=== PATIENT | female | born 1950 | race Caucasian/White ===

== ENCOUNTER → 2017-07-24 | Outpatient (CLI) | payer OTHER, SELFPAY ==
[~2017-07-24] MED LIST: ACETAMINOPHEN-1 EAC1 PO; AMOXICILLIN 50500 MG PO; CHOLESTEROL MED PO; CIPRO500 MG PO; COZAAR100 MG PO; FISH OIL 1,0001 EAC5 PO; FLUSH IV; LISINOPRIL10 MG PO; MULTI VITAMIN1 EACH PO; NAPROSYN500 MG PO; NOHOMEMEDICATIONS; OXYCONTIN10 M1 PO; PROTONIX40 M1 PO; SANTYL OINTMENT30 G1 TP; SENNA PO; SIMVASTATIN80 MG PO; VANCOMYCIN500 MG/VIA IV; vitamin b12 PO
[2017-07-24 08:04] LABS: CREATININE 1.2 mg/dL (0.6-1.3)
== END ==
LOC: M.LAB 07:00 → M.CT 08:00
PROVIDERS: Family Medicine
DX: Z01.818 Encounter for other preprocedural examination (principal); N28.1 Cyst of kidney, acquired; R91.1 Solitary pulmonary nodule; R93.8 Abnormal findings on diagnostic imaging of other specified body structures

== ENCOUNTER 2019-07-08 17:11 | Inpatient (IN) | payer OTHER, MEDICAID ==
[~2019-07-08] VITALS: Ht 154.9 cm; Wt 66.3 kg
[2019-07-08] MEDS ORDERED: PRAVACHOL40 MG PO (17:22)
[2019-07-08] MEDS ORDERED: ASA81BEC PO (17:23)
[2019-07-08] MEDS ORDERED: PLAVIX 75 MG TA75 MG PO (17:23)
[2019-07-08] MEDS ORDERED: VENTOLIN HFA 1818 GM INH (17:24)
[2019-07-08] MEDS ORDERED: ALBUTEROL NEB (17:24)
[2019-07-08 17:45] LABS: HEMATOCRIT 37.3 % (37.0-47.0); HEMOGLOBIN 12.4 gm/dL (12.0-15.0); MCH 30.1 pg (26.0-34.0); MCHC 33.4 g/dL (28.0-37.0); MCV 90.3 fL (80.0-100.0); MPV 7.9 fl. (7.2-11.1); NUCLEATED RBCS 0 /100WBC; PLATELET COUNT* 242 thou/uL (150-400); RBC 4.13 mil/uL (4.20-5.00); RDW-CV 18.5 % (10.5-14.5); WBC 12.4 thou/uL (4.0-11.0)
[2019-07-08 17:56] LABS: CALCIUM 9.7 mg/dL (8.5-10.1); CREATININE 1.3 mg/dL (0.6-1.3); POTASSIUM 4.7 mmol/L (3.5-5.1); PROTIME 10.5 Seconds (9.20-11.50)
[2019-07-08 18:03] LABS: ABSOLUTE LYMPHOCYTES 1.2 thou/uL (0.8-5.3); ABSOLUTE MONOCYTES 0.5 thou/uL (0.0-1.2); ABSOLUTE NEUTROPHILS 10.7 thou/uL (1.6-8.1); PLATELET ESTIMATE ADEQUATE
[2019-07-08 18:06] LABS: TOTAL BILIRUBIN 0.5 mg/dL (<0.1-1.0); TOTAL PROTEIN 8.4 g/dL (6.4-8.2)
[2019-07-08 18:56] LABS: INFLUENZA A ANTIGEN Negative (Negative); INFLUENZA B ANTIGEN Negative (Negative)
[2019-07-08 19:33] VITALS: BP 160/91
[2019-07-08 20:00] VITALS: BP 148/91
[2019-07-08 23:44] VITALS: BP 156/70
--- NOTE | 2019-07-09 02:12 | NUR ---
PT ALERT ORIENTED. ADMIT TO 219 AT 1940. UP TO BSC WITH ASSIST OF ONE. FREQUENT COUGHING. O2 AT 2 LITERS NC. O2 SATS IN THE MID TO UPPER 90S. BREATH SOUNDS INITIALY DIMINISHED NOW WITH WHEEZES THROUGH OUT. RT NOTIFIED FOR NEXT TX. COUGHING BECAME CONTINUOUS. DR DWYER NOTIFIED GUAIFENESIN WITH CODINE AND ONE TIME ORDER OF XANAX ORDERED AND GIVEN. IT SHOULD BE NOTED THAT PT STATES SHE DRINKS A VODKA AND TONIC DAILY. PT STATED HE LAST DRINK WAS JUST BEFORE SHE CAME INTO THE ED. TELEMETRY SHOWS SR. HR 120S WITH CONTINUOUS COUGHING BETTER NOW. WCTM
[2019-07-09 05:00] VITALS: BP 156/97
--- NOTE | 2019-07-09 05:51 | NUR ---
PT RESTING BETTER WITH LESS COUGHING. 2 DOSES OF COUGH MEDICINE GIVEN. O2 SATS DURING SLEEP UPPER 90S.
[2019-07-09 08:00] VITALS: BP 153/87
[2019-07-09 14:00] VITALS: BP 157/92
--- NOTE | 2019-07-09 18:00 | NUR ---
ASSUMED PT CARE AT 0700, PT A&O X4, REMAINS ON 2LPM O2 VIA NC, ALUMINUM BOAT INSPECTOR TRACING SINUS RHYTHM/SINUS TACH WITH FIRST DEGREE AV BLOCK, FULL ASSESSMENT CHARTED. PT HAVING EPISODES OF HYPERTENSION, BP 140/112 MANUALLY, PHYSICIAN NOTIFIED, NO NEW ORDERS GIVEN, BP CONT TO BE MONITORED CAREFULLY AND MANUALLY, DIASTOLIC DID LOWER TO 99. HOURLY ROUNDING COMPLETED.
[2019-07-10] VITALS (18 sets, daily range): BP systolic 69–168; BP diastolic 41–111
[2019-07-10 04:54] LABS: HEMATOCRIT 36.2 % (37.0-47.0); HEMOGLOBIN 11.9 gm/dL (12.0-15.0); MCH 30.3 pg (26.0-34.0); MCHC 32.8 g/dL (28.0-37.0); MCV 92.4 fL (80.0-100.0); MPV 7.5 fl. (7.2-11.1); RBC 3.92 mil/uL (4.20-5.00); WBC 16.4 thou/uL (4.0-11.0)
[2019-07-10 05:15] LABS: CALCIUM 8.4 mg/dL (8.5-10.1); CREATININE 1.2 mg/dL (0.6-1.3); MAGNESIUM 2.1 mg/dL (1.8-2.4); POTASSIUM 4.5 mmol/L (3.5-5.1)
[2019-07-10 05:48] LABS: URINE BILIRUBIN NEGATIVE (Negative); URINE BLOOD 1+ (Negative); URINE CLARITY CLEAR; URINE COLOR YELLOW; URINE GLUCOSE-RANDOM NEGATIVE (Negative); URINE KETONES NEGATIVE (Negative); URINE LEUKOCYTES-REFLEX NEGATIVE (Negative); URINE NITRITE-REFLEX NEGATIVE (Negative); URINE PROTEIN 2+ (Negative); URINE SPECIFIC GRAVITY 1.025 (1.005-1.030); URINE UROBILINOGEN 0.2 E.U./dl (0.2-1.0)
[2019-07-10 05:55] LABS: AMP/METHAMP Negative (Negative); BARBITURATES Negative (Negative); BENZODIAZEPINES Negative (Negative); COCAINE Negative (Negative); METHADONE Negative (Negative); OPIATES POSITIVE (Negative); PCP Negative (Negative); THC Negative (Negative)
[2019-07-10 06:27] LABS: BACTERIA-REFLEX 1-9 Few /HPF (None Seen); SQUAMOUS 0-3 Few /LPF (0-3); URINE RBC 0-2 Rare /HPF (0-2); URINE WBC-REFLEX 0-5 Rare /HPF (0-5)
[2019-07-10 06:28] LABS: CASTS None Seen /LPF (None Seen); CRYSTALS None Seen /LPF (None Seen)
[2019-07-10 07:02] LABS: PROTIME 10.3 Seconds (9.20-11.50)
[2019-07-10 07:06] LABS: CALCIUM 8.3 mg/dL (8.5-10.1); PHOSPHORUS* 3.6 mg/dL (2.5-4.9)
--- NOTE | 2019-07-10 08:04 | NUR ---
PT AWAKE MOST OF SHIFT. ASSESSMENT DOCUMENTED. MEDS GIVEN PER E-MAR. PORT PATENT. O2 WORN ALL SHIFT. PT STARTED SEEING BUGS IN ROOM, PRN ATIVAN GIVEN PER E-MAR. NOTIFIED, ALCOHOL WITHDRAWL STARTED. PT AGGITATED AT TIMES THIS SHIFT. CIWA DOCUMENTED. FALL PRECAUTIONS IN PLACE. WILL CONTINUE WITH PLAN OF CARE.
[2019-07-10 09:20] LABS: PCO2 94.5 mmHg (35.0-45.0); pH 7.048 (7.340-7.450)
[2019-07-10 09:21] LABS: PO2 195.7 mmHg (75.0-100.0)
--- NOTE | 2019-07-10 10:00 | NUR ---
ASSUMED PT CARE AT 0700, PT A&O X4, UP WITH ASSIST X1 TO BEDSIDE COMMODE, REMAINS ON O2 AT 2LPM VIA NC, EXT JS DEVELOPER TRACING SINUS TACH WITH 1ST DEGREE BLOCK. AT APPROX 0845, PT WAS FOUND TO HAVE TAKEN O2 OFF, LIPS WERE BLUE, PT MINIMALLY RESPONSIVE, O2 SAT 74%, RESPIRATIONS 44, HR 133, BP 202/117, KUSSMAUL BREATHING. DR DWYER NOTIFIED, PRN IV ATIVAN GIVEN, PT PLACED ON BIPAP, ORDERS TO TRANSFER TO ICU, REPORT GIVEN TO EDWIN ERVIN. PT TRANSFERRED AT APPROX 0945.
[2019-07-10 10:37] LABS: PO2 78.3 mmHg (75.0-100.0)
[2019-07-10 10:39] LABS: PCO2 76.5 mmHg (35.0-45.0)
[2019-07-10 11:31] LABS: PO2 78.3 mmHg (75.0-100.0)
[2019-07-10 11:32] LABS: PCO2 76.5 mmHg (35.0-45.0)
--- NOTE | 2019-07-10 17:16 | NUR ---
PT TRANSFERED FROM TELE. BIPAP IN PLACE. PT LETHARGIC. CIWA SCORE 1. CAMPBELL CATHETER PLACED FOR ACURATE I/O. IVF INFUSING. NO S/S OF PAIN. SLOW TO PROGRESS TOWARDS GOALS.
[2019-07-11] VITALS (26 sets, daily range): BP systolic 102–177; BP diastolic 18–135
[2019-07-11 02:36] LABS: HEMATOCRIT 33.7 % (37.0-47.0); HEMOGLOBIN 11.1 gm/dL (12.0-15.0); MCH 30.6 pg (26.0-34.0); MCHC 32.8 g/dL (28.0-37.0); MCV 93.2 fL (80.0-100.0); MPV 7.7 fl. (7.2-11.1); RBC 3.62 mil/uL (4.20-5.00); RDW-CV 18.6 % (10.5-14.5); WBC 12.7 thou/uL (4.0-11.0)
[2019-07-11 02:49] LABS: CALCIUM 7.8 mg/dL (8.5-10.1); CREATININE 1.2 mg/dL (0.6-1.3); POTASSIUM 4.6 mmol/L (3.5-5.1)
--- NOTE | 2019-07-11 06:43 | NUR ---
SOMEWHAT PROGRESSING TOWARDS GOALS, SEE ASSESSMENT DOCUMENTATION FOR FURTHER DETAILS, AFEBRILE, CIWA 8-11, ATIVAN 1MG IVP GIVEN X2, REMOVING BIPAP MASK, SA02 DECREASING HIGH 70'S WITH BIPAP MASK REMOVAL, SR FIRST DEGREE AVB TRACING STRING LASTER, REMAINS NPO PER ORDER, ATTEMPTING TO PUNCH RB STAFF WITH ORAL CARE, CAMPBELL PATENT TO DD, D5 0.45%NS 80CC/HR VIA INFUSION PUMP PER ORDER, REORIENTATION PLACE, TIME, AND SITUATION PRN, PT VERBALIZED UNDERSTANDING, CONFUSED, FORGETFUL, WITH INTERMITTENT VISUAL HALLUCINTATIONS VERBALIZED, EMOTIONAL SUPPORT PROVIDED, SAFETY MAINTAINED.
--- NOTE | 2019-07-11 10:57 | NUR ---
ICU rounds: Pt asleep on bipap, Pt off for 10 minutes and had to be put back on. Confused, can't answer questions. CIWA b/t 8-11. CM attempted to call Donna, caregiver, unable to leave a message, will continue to try to reach. Following.
--- NOTE | 2019-07-11 11:04 | NUR ---
Per review of Pt's chart, Pt resides at home alone, was A&O at admission. Pt was transferred to ICU yesterday from tele. CM left for Iam Travis [phone], possibly Pt's CW at [facility]. Pt has a walker and cane at home that she can use for mobility. Hx of [facility]. Following.
--- NOTE | 2019-07-11 18:30 | NUR ---
this engineering writer assumed acre of pt 0700 pt is agitated and restless keeps pulling off bipap and at ivs ciwa completed q4 ranging from 8-10 based off of agitation anxiety pt is not verbalizing at this time is able to squeeze hand at times but does not follow commands or track or trace pt has been in contact with children in years pt emergency contact last anali from her home health agency spoke with social work about steps going forward reymundo stated they only spend 10 hours a week with her and baseline is walk with cane and talk pt drinks 7-10 glasses of vodka daily and is currently being treated for etoh withdrawal along with copd excerbation ativan given according to protocol appears to help calm pt at times pt is resting in bed
[2019-07-12] VITALS (20 sets, daily range): BP systolic 126–179; BP diastolic 61–106
[2019-07-12 03:31] LABS: HEMOGLOBIN 10.6 gm/dL (12.0-15.0); MCHC 32.3 g/dL (28.0-37.0); MPV 7.6 fl. (7.2-11.1); RBC 3.55 mil/uL (4.20-5.00); RDW-CV 18.7 % (10.5-14.5); WBC 12.3 thou/uL (4.0-11.0)
[2019-07-12 04:08] LABS: CALCIUM 7.7 mg/dL (8.5-10.1); CREATININE 1.1 mg/dL (0.6-1.3); PHOSPHORUS* 2.1 mg/dL (2.5-4.9); POTASSIUM 4.2 mmol/L (3.5-5.1)
--- NOTE | 2019-07-12 07:00 | NUR ---
PT AWAKE, PULLING AT BIPAP MASK, NO OPENING EYES NOTED, ATIVAN IV GIVEN IN PLACE PO ATIVAN, NPO TO PREVENT ASPIRATION, NO CHANGE IN VENTILATOR SETTINGS BY RT, SAO2 =>97% DURING NOC, RESTING QUIETLY WITH EYES CLOSED AT THIS TIME, ABLE TO ANSWER SIMPLE QUESTIONS, AFEBRILE, ST WITH FIRST DEGREE AVB TRACING MANAGER CAR, CAMPBELL PATENT DD, SAFETY MAINTAINED.
[2019-07-12 08:29] LABS: pH 7.184 (7.340-7.450)
[2019-07-12 08:30] LABS: PO2 194.6 mmHg (75.0-100.0)
--- NOTE | 2019-07-12 11:06 | NUR ---
ICU rounds: Pt given last banana bag today, bipap, mejia, NPO. SW/CM to continue to follow to assist with safe dc planning. Awaiting more alertness and orientation to discuss pt appointing new DPOA.
--- NOTE | 2019-07-12 19:18 | NUR ---
pt had swallow eval today did not pass recommand npo
[2019-07-13] VITALS (25 sets, daily range): BP systolic 104–185; BP diastolic 54–106
[2019-07-13 06:21] LABS: HEMATOCRIT 32.9 % (37.0-47.0); HEMOGLOBIN 10.7 gm/dL (12.0-15.0); MCHC 32.6 g/dL (28.0-37.0); MCV 92.2 fL (80.0-100.0); MPV 7.8 fl. (7.2-11.1); RBC 3.56 mil/uL (4.20-5.00); RDW-CV 18.9 % (10.5-14.5); WBC 10.1 thou/uL (4.0-11.0)
[2019-07-13 06:29] LABS: CALCIUM 7.6 mg/dL (8.5-10.1); MAGNESIUM 1.9 mg/dL (1.8-2.4); POTASSIUM 3.7 mmol/L (3.5-5.1)
--- NOTE | 2019-07-13 10:10 | NUR ---
INT ROUNDS: PT REMAINS SEDATED. DISCUSSED WITH NURSE. NOT ABLE TO MAKE ANY CONTACT WITH FAMILY OF YET, ONLY INFANT NANNY. WILL FOLLOW
[2019-07-14] VITALS (52 sets, daily range): BP systolic 104–163; BP diastolic 55–114
[2019-07-14 04:19] LABS: BE 6.1 mmol/L (-2 to +3); PO2 106.4 mmHg (75.0-100.0); pH 7.344 (7.340-7.450)
[2019-07-14 04:21] LABS: PCO2 63.1 mmHg (35.0-45.0)
[2019-07-14 04:36] LABS: HEMATOCRIT 34.3 % (37.0-47.0); HEMOGLOBIN 11.5 gm/dL (12.0-15.0); MCH 30.4 pg (26.0-34.0); MCHC 33.4 g/dL (28.0-37.0); MPV 7.5 fl. (7.2-11.1); RBC 3.76 mil/uL (4.20-5.00); RDW-CV 17.9 % (10.5-14.5); WBC 8.1 thou/uL (4.0-11.0)
[2019-07-14 05:15] LABS: CALCIUM 7.7 mg/dL (8.5-10.1); MAGNESIUM 1.9 mg/dL (1.8-2.4); POTASSIUM 3.5 mmol/L (3.5-5.1)
--- NOTE | 2019-07-14 07:18 | NUR ---
ASSESSMENTS CHARTED. PATIENT WAS TAKEN OFF BIPAP AND PLACED ON NC 2L AT 2330. RESPIRATORY STATUS STABLE. CALLED PHYSICIAN FOR HEART RATE AND BP SUPPORT THAT WAS NOT CONTROLLED ON CURRENT REGIMEN, ORDERS OBTAINED. ABG RESULTS SHOW IMPROVEMENT IN ALL CATEGORIES, RESULTS CALLED AND NO ADDITIONAL ORDERS RECIEVED. PATIENT SLOWLY PROGRESSING TOWARD GOALS.
--- NOTE | 2019-07-14 16:47 | NUR ---
ICU rounds: Pt nurse reported pt is not interactive, doesn't open eyes, makes sounds but not alert yet. SW to continue to follow to assist with safe dc planning.
--- NOTE | 2019-07-14 18:37 | NUR ---
PT HAS BEEN ALERT BUT HAS NO VERBAL RESPONSE.VSS.INFORMATICS PHYSICIAN LIAISON IN PLACE.PT REMAINS ON 2L O2 NC WITH BIPAP PRN.NO C/O PAIN.IV ANTIBIOTICS GIVEN.LASIX GIVEN WITH ADEWUATE OUTPUT.PT REMAINS NPO DUE TO MENTAL STATUS.Q2 HOUR POSITION CHANGES.HOURLY ROUNDING COMPLETED FOR PT SAFETY.CALL LIGHT AND FALL PRECAUTIONS IN PLACE.WILL CONTINUE TO MONITOR FOR DURATION OF SHIFT.
--- NOTE | 2019-07-14 22:21 | NUR ---
REPORT RECEIVED FROM EDWIN DAVE. THIS RN TO TAKE OVER CARE AT THIS TIME.
[2019-07-15] VITALS (23 sets, daily range): BP systolic 91–164; BP diastolic 58–124
--- NOTE | 2019-07-15 02:47 | NUR ---
BIPAP PUT ON AT 0030
--- NOTE | 2019-07-15 05:32 | NUR ---
PT. REMAINS NON-VERBAL. HAS BEEN ASLEEP SINCE 99. BIPAP REMAINS ON AT THIS TIME. POSITION CHANGED Q2H. IVF REMAIN INFUSING AT TKO. CAMPBELL CATHETER REMAINS IN PLACE. CALL LIGHT IN REACH, SINUS RHYTHM TRACING ON BENCH INSPECTOR AT THIS TIME. WILL CONTINUE TO MONITOR.
[2019-07-15 10:40] LABS: BE 13.3 mmol/L (-2 to +3); PCO2 VENOUS 75.1 mmHg (41.0-51.0); PO2 VENOUS 74.8 mmHg (35.0-45.0)
[2019-07-15 10:45] LABS: ABSOLUTE LYMPHOCYTES 0.3 thou/uL (0.8-5.3); ABSOLUTE MONOCYTES 0.4 thou/uL (0.0-1.2); ABSOLUTE NEUTROPHILS 7.9 thou/uL (1.6-8.1); BASOPHILS 0.2 %; HEMATOCRIT 35.5 % (37.0-47.0); HEMOGLOBIN 11.7 gm/dL (12.0-15.0); LYMPHOCYTES 3.4 %; MCH 29.8 pg (26.0-34.0); MCHC 32.9 g/dL (28.0-37.0); MCV 90.5 fL (80.0-100.0); MONOCYTES 5.1 %; MPV 7.6 fl. (7.2-11.1); NUCLEATED RBCS 0 /100WBC; PLATELET COUNT* 226 thou/uL (150-400); POLYS 91.3 %; RBC 3.93 mil/uL (4.20-5.00); RDW-CV 17.8 % (10.5-14.5); WBC 8.7 thou/uL (4.0-11.0)
[2019-07-15 11:00] LABS: CALCIUM 8.1 mg/dL (8.5-10.1); CREATININE 0.9 mg/dL (0.6-1.3); POTASSIUM 3.4 mmol/L (3.5-5.1); TOTAL BILIRUBIN 0.3 mg/dL (<0.1-1.0); TOTAL PROTEIN 6.7 g/dL (6.4-8.2)
[2019-07-15 11:03] LABS: AMMONIA 32 umol/L (11-32); NT-PRO BRAIN NAT PEPTIDE 4377 pg/mL (<300)
[2019-07-15 12:29] LABS: URINE BILIRUBIN NEGATIVE (Negative); URINE BLOOD 2+ (Negative); URINE CLARITY CLEAR; URINE COLOR YELLOW; URINE GLUCOSE-RANDOM NEGATIVE (Negative); URINE KETONES NEGATIVE (Negative); URINE LEUKOCYTES NEGATIVE (Negative); URINE NITRITE NEGATIVE (Negative); URINE PROTEIN 3+ (Negative); URINE SPECIFIC GRAVITY 1.025 (1.005-1.030); URINE UROBILINOGEN 0.2 E.U./dl (0.2-1.0)
--- NOTE | 2019-07-15 12:32 | NUR ---
ICU rounds: Pt nurse reported pt failed swallow study so TPN through port, fluids, 2L o2, Bipap at night, and pt talking some and waking up a little. No one has visited pt and pt not yet responsive enough to discuss DPOA and plans towards home alone with caregiver support. SW/CM to continue to follow to assist with safe dc planning.
[2019-07-15 12:38] LABS: SQUAMOUS 0-3 Few /LPF (0-3); URINE WBC 0-5 Rare /HPF (0-5)
[2019-07-15 12:39] LABS: BACTERIA 1-9 Few /HPF (None Seen); CASTS None Seen /LPF (None Seen); CRYSTALS None Seen /LPF (None Seen); MUCUS 0-3 Light strn/LPF (None Seen)
--- NOTE | 2019-07-15 14:59 | EKG ---
[place] [address] ELECTROCARDIOGRAM REPORT Name: MARY WEBSTER Room: [address] IN .R.#: [id number] Admission: 07/08/19 Attend Phys: Tripp Roche, Discharge: Date of : 48 Date of Service: 07/08/19 1739 Report #: [id number] THIS REPORT FOR: //name// [facility] ED Test Date: 2019-07-08 Test Time: 17:39:07 Pat Name: MARY WEBSTER Department: Room: [facility] Gender: F Retail Event And Sales Assistant: FLO : 1950 Requested By: Benson Noel Order Number: [id number] MD: Molina Bernard Measurements Intervals [place] Rate: 102 P: 86 WV: 193 QRS: 31 QRSD: 83 T: 67 QT: 374 QTc: 488 Interpretive Statements Sinus tachycardia Biatrial enlargement Borderline low voltage, extremity leads septal infarct, age indeterminate Baseline wander in lead(s) V1 Compared to ECG 02/06/2016 14:08:58 Sinus rhythm no longer present Myocardial infarct finding still present Electronically Signed On 07-09-2019 12:55:53 AREA DIRECTOR by Molina Bernard [email or web address] <ELECTRONICALLY SIGNED> By: Molina Bernard MD, FAC 07/09/19 1255 1739 1739 Molina Bernard MD, [facility] /EPI
--- NOTE | 2019-07-15 14:59 | EKG ---
[place] [address] ELECTROCARDIOGRAM REPORT Name: MARY WEBSTER Room: [address] IN M.R.#: [id number] Admission: 07/08/19 Attend Phys: Tripp Roche, Discharge: Date of : 48 Date of Service: 07/09/19 1558 Report #: [id number] THIS REPORT FOR: //name// [facility] Test Date: 2019-07-09 Test Time: 15:58:23 Pat Name: MARY WEBSTER Department: Room: [facility] Gender: F Graduate Student: CCD : 1950 Requested By: Tripp Roche Order Number: [id number] Reading MD: Molina Bernard Measurements Intervals [place] Rate: 120 P: 83 IA: 191 QRS: 41 QRSD: 75 T: -27 QT: 304 QTc: 430 Interpretive Statements Sinus tachycardia Borderline low voltage, extremity leads Anteroseptal infarct, old Compared to ECG 07/08/2019 17:39:07 Myocardial infarct finding still present Electronically Signed On 07-10-2019 11:09:07 SUPERVISOR TYPE PHOTOGRAPHY by Molina Bernard [email or web address] <ELECTRONICALLY SIGNED> By: Molina Bernard MD, FAC 07/10/19 1109 1558 1558 Molina Bernard MD, [facility] /EPI
--- NOTE | 2019-07-15 17:52 | NUR ---
PATIENT SOMEWHAT PROGRESSING WELL TOWARDS GOALS THIS SHIFT. STARTING TO BECOME MORE ALERT AND ASKING FOR FOOD AND WATER AND COFFEE. FOLLOWS MOST COMMANDS. ANSWERING SOME ORIENTATION QUESTIONS CORRECTLY. GIGGLES AT HER SELF RANDOMLY. TPN TO BE STARTED TONIGHT DUE TO PROLONGED NPO STATUS. VITALS REMAIN WNL. CALL LIGHT IN REACH. NO PAIN, NAUSEA OR SHORTNESS OF AIR AT THIS TIME. HIGH FALL PRECAUTIONS IN PLACE.
[2019-07-16] VITALS (20 sets, daily range): BP systolic 128–167; BP diastolic 66–105
--- NOTE | 2019-07-16 07:34 | NUR ---
Pt more alert, but restless overnight. Pt removed NC multiple times; desats to mid-80s on RA, but sats mid to upper 90s on 1L. Pt also refused respiratory treatments and BIPAP overnight, and also refused oral care. Pt yells out "help," "Amber," or "juice" on occasion, and moans and mumbles frequently. Pt does not elaborate when staff members inquire of her wants/needs. VSS, and BP elevated at times to 150s-160s/80s-90s. Pt also removed BP cuff multiple times overnight. At one point after visitor left last night, pt sat up on side of bed with legs between bed rails. Pt attempted to sit up at other times, but usually would end up scooted down in bed. Pt repositioned multiple times but pt usually returned to semi-fowlers position. Pt removed IV from her L hand but did not pull at line accessing portacath. Remains NPO until ST repeats swallow study. Pt disoriented to sitation, but this am states she is at [place] and it is Thursday. Will continue to monitor.
[2019-07-16 10:07] LABS: ANTI-Xa-UNFRACTIONATED HEP 7.419; PO2 90.6 mmHg (75.0-100.0); pH 7.419 (7.340-7.450)
[2019-07-16 10:10] LABS: PCO2 61.6 mmHg (35.0-45.0)
[2019-07-16 11:11] LABS: HEMOGLOBIN 12.7 gm/dL (12.0-15.0); MCH 30.1 pg (26.0-34.0); MCHC 33.3 g/dL (28.0-37.0); MCV 90.3 fL (80.0-100.0); MPV 7.6 fl. (7.2-11.1); NUCLEATED RBCS 0 /100WBC; PLATELET COUNT* 242 thou/uL (150-400); RDW-CV 17.5 % (10.5-14.5); WBC 8.6 thou/uL (4.0-11.0)
[2019-07-16 11:33] LABS: ALBUMIN 3.2 g/dL (3.4-5.0); CALCIUM 8.4 mg/dL (8.5-10.1); CREATININE 0.9 mg/dL (0.6-1.3); POTASSIUM 3.9 mmol/L (3.5-5.1); TOTAL BILIRUBIN 0.4 mg/dL (<0.1-1.0); TOTAL PROTEIN 6.9 g/dL (6.4-8.2)
[2019-07-16 11:52] LABS: ABSOLUTE LYMPHOCYTES 0.3 thou/uL (0.8-5.3); ABSOLUTE MONOCYTES 0.2 thou/uL (0.0-1.2); ABSOLUTE NEUTROPHILS 8.2 thou/uL (1.6-8.1)
[2019-07-16 11:53] LABS: ANISOCYTOSIS 1+; PLATELET ESTIMATE ADEQUATE
--- NOTE | 2019-07-16 17:18 | NUR ---
PT HAS BEEN ALERT THROUGHOUT SHIFT WITH SOME CONFUSION/HALLUCINATIONS.VSS.FLATBED STITCHER IN PLACE.PT DOWNGRADED TO TELE STATUS.PT ON ROOM AIR MOST OF THE DAY TO MAINTAIN O2 SAT @ 90%.NO C/O PAIN.IV ANTIBIOTICS GIVEN.POTASSIUM REPLACED PER PROTOCOL.PT WORKED WITH SPEECH THERAPY AND HAD ICE CHIPS BUT NO DIET STARTED.TPN INFUSING PER ORDERS.FREQUENT ORAL MOUTH CARE.PT HAS YELLED OUT THIS EVENING AND MAKING THREATS TO CALL POLICE.CIWA ASSESSMENT COMPLETED WITH SCORE OF 11 THIS EVENING-MAINLY DUE TO AGITATION.HOURLY ROUNDING COMPLETED FOR PT SAFETY.CALL LIGHT AND FALL PRECAUTIONS IN PLACE.WILL CONTINUE TO MONITOR FOR DURATION OF SHIFT.
--- NOTE | 2019-07-17 01:46 | NUR ---
DARLENE CALLED, R/T CONTACT FROM PHYSICIAN 07/16/19. STATES SHE WILL BE IN TO VISIT PATIENT 07/17/19 AT 11AM
[2019-07-17 04:58] VITALS: BP 129/85
--- NOTE | 2019-07-17 07:21 | NUR ---
Pt did not sleep overnight, but much less restless than the night before, and far less yelling out. Pt deaccessed portacath last night; reaccessed per ED RN. TPN infusing. Pt remains NPO, though asking this am for some H2O. VSS. On BIPAP for approx 30 minutes last pm, but then pt removed mask and refused to have it replaced. Pt required O2 @ 0.5-1 LPM prn SaO2 85-87%. Pt has been off O2 since 299, and SaO2 89-91%. Pt pleasantly confused but conversational and cooperative. Last night pt up to BSC X1 assist for BM. Pt weak, and back to bed X2 assist. Will continue to monitor.
[2019-07-17 08:46] VITALS: BP 139/81
--- NOTE | 2019-07-17 08:50 | NUR ---
PT IS A/O X2 AND PLEASANT.LAG SCREWER IN PLACE.ON ROOM AIR.NO C/O PAIN.LEFT CHEST PORT SECURE AND PATENT WITH TPN INFUSING PER ORDERS.PT REMAINS NPO UNTIL PASSING SWALLOW STUDY.PT TO TRANSFER TO [facility].REPORT CALLED TO FLOOR.ALL PERSONAL BELONGINGS PACKED AND TAKEN WITH PT.
[2019-07-17 12:00] VITALS: BP 146/75
--- NOTE | 2019-07-17 12:50 | NUR ---
PT TRANSFERED FROM ICU TO TELEMETRY UNIT. ON RA. O2 SATURATION IS 95%. TPN INFUSING ORDERED THROUGH LEFT CHEST PORT. PT REPOSITIONED IN BED. VSS. NPO STATUS. ACCUCHECK. DENIES PAIN. SCDS ON. LOWER EXTREMITIES ELEVATED ON PILLOWS. TRACING SR ON TANBARK LABORER. RED BOTTOM. CALL LIGHT WITHIN REACH. FALL PRECAUTION IN PLACE. WILL CONTINUE TO MONITOR PT
--- NOTE | 2019-07-17 13:05 | CON ---
[address] [address] CONSULTATION Name: MARY WEBSTER Room: [address] IN M.R.#: [id number] Admission: 07/08/19 Attend Phys: Tripp Roche MD Discharge: Date of : 48 Report #: [id number] THIS REPORT FOR: //name// cc: Beba Dickerson Tara DO ~ THIS REPORT FOR: //name// CC: SHABBIR Dickerson DATE OF SERVICE: 07/16/2019 I was asked to see this 68-year-old lady for persistent hypercarbia. HISTORY OF PRESENT ILLNESS: The patient is confused, is not able to give me any information. All of the information was obtained from chart and nursing staff. Apparently, she presented to the Emergency Room with increased shortness of breath and cough and sputum production. She did not have chest pain. She was admitted to ICU and has been on BiPAP on and off. She did not use BiPAP yesterday. She has been agitated. She has a history of heavy alcohol use. She has a significant history of smoking. I do not know if she is currently smoking or not. She was diagnosed with lung cancer recently and has a Port-A-Cath, so I am assuming she did receive chemotherapy. She is not able to tell us where she got her chemotherapy or cancer treatment. Currently, she is confused, but appears comfortable. She is on 1 liter of oxygen, O2 saturation is 96%. PAST MEDICAL HISTORY: COPD, heavy alcohol abuse, osteomyelitis, lung cancer. ALLERGIES: PENICILLINS. MEDICATIONS: Currently, she is on DuoNeb, aspirin, azithromycin, Rocephin, Plavix, Lovenox, Ativan p.r.n., levothyroxine, Solu-Medrol 62.5 daily, Protonix. SOCIAL HISTORY: Significant alcohol and tobacco use. FAMILY HISTORY: Hypertension. REVIEW OF SYSTEMS: As mentioned as above, other systems otherwise negative. PHYSICAL EXAMINATION: GENERAL: This is an overweight lady. VITAL SIGNS: Her O2 saturation on 1 liter of oxygen is 96%, respiratory rate 18, heart rate 96, blood pressure 148/82, temperature 36.6. HEENT: Normocephalic, atraumatic. Pupils equal, round, reactive to [place] [address] CONSULTATION Name: MARY WEBSTER Room: [address]#: [id number] Admission: 07/08/19 Attend Phys: Tripp Roche MD Discharge: Date of : 48 Report #: [id number] NECK: There is no lymphadenopathy or thyromegaly. CARDIOVASCULAR: Regular rate and rhythm. PMI is nondisplaced. CHEST: Inspection is normal. LUNGS: There is end-expiratory wheezing. ABDOMEN: Soft. Bowel sounds are good. There is no mass. EXTREMITIES: There is no cyanosis. LYMPHATICS: There is no lymphadenopathy. NEUROLOGIC: She is confused. LABORATORY DATA: I reviewed the following lab data. Chest x-ray on 07/13 shows COPD changes, Port-A-Cath in place. CT of the chest on did show significant interval decrease in the mass-like opacity in the posterior medial right upper lobe, scarring, compression fracture of T4-T5. WBC 8.7, hemoglobin 11.7, platelet 226. ABG on 07/13, pH 7.34, pCO2 of 63, pO2 of 106 on 2 liters of oxygen. Sodium 146, potassium 3.4, CO2 of 40, chloride 103, BUN 32, creatinine 0.9. Influenza A and B negative. BNP 4377. Troponin less than 0.07. IMPRESSION: 1. Acute on chronic respiratory failure secondary to acute exacerbation of chronic obstructive pulmonary disease, acute bronchitis, cannot rule out diastolic congestive heart failure. 2. Abnormal CT of the chest. 3. Acute exacerbation of chronic obstructive pulmonary disease. 4. Acute bronchitis. 5. History of lung cancer, details are not known. 6. Alcohol abuse. 7. Encephalopathy could be secondary to alcohol withdrawal. PLAN AND RECOMMENDATIONS: 1. Titrate FiO2 to keep O2 saturation 90%. 2. The patient has chronic hypercarbic respiratory failure. 3. Change Solu-Medrol to 40 mg IV every 12. 4. Continue antibiotic. 5. Bronchodilator. 6. Add inhaled corticosteroid. 7. Avoid oversedation. 8. Try to obtain records about her lung cancer. 9. Use BiPAP p.r.n. during day, continuously at night. 10. The findings and recommendations [place] [address] CONSULTATION Name: ELEANORMARY S Room: [address] IN [facility].#: [id number] Admission: 07/08/19 Attend Phys: Tripp Roche MD Discharge: Date of : 48 Report #: [id number] Thank you very much for allowing me to participate in care of this very nice lady. <ELECTRONICALLY SIGNED> By: Kitty Rush MD 07/17/19 1305 0928 [id number] Rush MD /nt
--- NOTE | 2019-07-17 13:21 | NUR ---
INSULIN GIVEN AT 1300 ORDERED. NPH NOT AVAILABLE YET. PHARMACY NOTIFIED. WILL AWAIT FOR AVAILABILITY.
[2019-07-17 14:25] LABS: ABSOLUTE BASOPHILS 0.2 thou/uL (0.0-0.2); ABSOLUTE LYMPHOCYTES 0.1 thou/uL (0.8-5.3); ABSOLUTE MONOCYTES 0.2 thou/uL (0.0-1.2); ABSOLUTE NEUTROPHILS 14.2 thou/uL (1.6-8.1); BASOPHILS 1.2 %; HEMATOCRIT 34.8 % (37.0-47.0); HEMOGLOBIN 11.6 gm/dL (12.0-15.0); MCH 30.3 pg (26.0-34.0); MCHC 33.4 g/dL (28.0-37.0); MCV 90.6 fL (80.0-100.0); MPV 8.1 fl. (7.2-11.1); NUCLEATED RBCS 0 /100WBC; PLATELET COUNT* 211 thou/uL (150-400); POLYS 96.8 %; RBC 3.84 mil/uL (4.20-5.00); WBC 14.7 thou/uL (4.0-11.0)
[2019-07-17 14:36] LABS: CALCIUM 8.1 mg/dL (8.5-10.1); CREATININE 1.2 mg/dL (0.6-1.3); POTASSIUM 4.1 mmol/L (3.5-5.1)
[2019-07-17 14:50] LABS: NT-PRO BRAIN NAT PEPTIDE 813 pg/mL (<300)
[2019-07-17 15:02] LABS: AMMONIA < 10 umol/L (11-32)
--- NOTE | 2019-07-17 16:17 | NUR ---
psych evaluation in process in patient's room at this time
[2019-07-17 17:05] VITALS: BP 123/72
--- NOTE | 2019-07-17 17:46 | NUR ---
psych eval completed. orders faxed over to tele floor. hospitalist made aware. see chart.
[2019-07-17 20:00] VITALS: BP 101/49
[2019-07-18] VITALS: BP 117/74
[2019-07-18 04:00] VITALS: BP 115/65
--- NOTE | 2019-07-18 05:27 | NUR ---
ASSUMED PT CARE AT APPROX 1930. PT IS AWAKE AND ORIENTED TO SELF AND PLACE, CN BE CONFUSED AND FORGETUL AT TIMES. FEED INSPECTION SUPERVISOR IN PLACE TRACING SR/ST. ASSESSMENT DONE AND CHARTED. TPN INFUSING WELL THROUGH LEFT CHEST PORT ORDERED. PT IS ABLE TO SLEEP MOST OF THE NIGHT. PT ABLE TO WEAR BIPAP FOR AN HOUR LAST NIGHT AND REFUSED TO KEEP IT ON THEREAFTER. HIGH FALL PRECAUTIONS IN PLACE. CALL LIGHT WITHIN REACH. HOURLY ROUNDING DONE FOR PT SAFETY.
--- NOTE | 2019-07-18 07:47 | NUR ---
CM asked nurse to obtain PT/OT orders. Per , Pt will likely need rehab post dc. Following.
[2019-07-18 12:12] VITALS: BP 98/63
[2019-07-18 16:00] VITALS: BP 93/74
--- NOTE | 2019-07-18 17:01 | NUR ---
ASSUMED PATIENT CARE AT 1900. ASSESSMENT COMPLETED CHARTED. PATIENT IS NSR ON THE MONITOR. HOURLY ROUNDING IN PLACE FOR PATIENT SAFETY. CLWR.
[2019-07-18 20:00] VITALS: BP 103/59
[2019-07-19] VITALS: BP 106/69
[2019-07-19 04:19] VITALS: BP 109/65
[2019-07-19 05:17] LABS: URINE BILIRUBIN NEGATIVE (Negative); URINE BLOOD 3+ (Negative); URINE CLARITY CLEAR; URINE COLOR YELLOW; URINE GLUCOSE-RANDOM NEGATIVE (Negative); URINE KETONES NEGATIVE (Negative); URINE LEUKOCYTES-REFLEX NEGATIVE (Negative); URINE NITRITE-REFLEX NEGATIVE (Negative); URINE PROTEIN 1+ (Negative); URINE UROBILINOGEN 0.2 E.U./dl (0.2-1.0)
[2019-07-19 05:28] LABS: BACTERIA-REFLEX 1-9 Few /HPF (None Seen); CASTS None Seen /LPF (None Seen); CRYSTALS None Seen /LPF (None Seen); MUCUS 0-3 Light strn/LPF (None Seen); SQUAMOUS 0-3 Few /LPF (0-3); URINE WBC-REFLEX 0-5 Rare /HPF (0-5)
--- NOTE | 2019-07-19 05:46 | NUR ---
ASSUMED PT CARE AT APPROX 1930. PT IS AWAKE AND ORIENTED TO SELF AND PLACE,CAN BE CONFUSED AND FORGETUL AT TIMES. LOGISTICS PLANNING ENGINEER IN PLACE TRACING SR/ST. ASSESSMENT DONE AND CHARTED. TPN INFUSING WELL THROUGH LEFT CHEST PORT ORDERED. PT IS ABLE TO SLEEP MOST OF THE NIGHT.PT REFUSED TO WEAR THE BIPAP THIS SHIFT. POSITION CHANGES DONE, REFUSED SOME TURNS, EDUCATION PROVIDED. CALL LIGHT WITHIN REACH. HOURLY ROUNDING DONE FOR PT SAFETY.HIGH FALL PRECAUTIONS IN PLACE.
[2019-07-19 08:00] VITALS: BP 124/71
--- NOTE | 2019-07-19 11:48 | NUR ---
Nutrition: TPN is meeting up to 150% of nutritional needs. Pt wt is up to 149#. Recommend reducing TPN to 75mL/hr. See RD Reassessment form for details.
--- NOTE | 2019-07-19 12:05 | NUR ---
ASSUMED CARE OF PATIENT THIS AM AT 0730. PATIENT IS ALERT AND ORIENTED X 2 TO 3. SHE DENIES PAIN. HER APPETITE REMAINS POOR. PATIENT WAS 94% ON ROOM AIR THIS AM. O2 IS OFF THIS AM. SHE C/O SOA AROUND NOON. SAT WAS 91 ON ROOM AIR. PATIENT REPOSITIONED AND O2 PLACED AT 2 LITERS. PT IN TO WORK WITH PATIENT. ADRIAN REMAINS TO DD. PATIENT IS REFUSING TO BE UP IN THE CHAIR AT THIS TIME. TPN INFUSING AT 80/HR. WILL CONTINUE TO MONITOR VS. TELE SHOWS NSR.
[2019-07-19 12:15] VITALS: BP 111/66
--- NOTE | 2019-07-19 15:26 | NUR ---
Berna was able to complete a DPOA with Pt, appointing her friend, Kashmir Bates [phone], copy placed on chart and copy given to Kashmir. BERNA updated Iam with [facility]
[2019-07-19 16:45] VITALS: BP 149/95
[2019-07-19 20:00] VITALS: BP 124/55
[2019-07-20 00:27] VITALS: BP 102/62
--- NOTE | 2019-07-20 03:22 | NUR ---
ASSUMED PT CARE AT APPROX 1930. PT IS AWAKE AND ORIENTED TO SELF AND PLACE,CAN BE CONFUSED AND FORGETUL AT TIMES. PROJECT RESERVOIR ENGINEER IN PLACE TRACING SR ASSESSMENT DONE AND CHARTED. TPN INFUSING WELL THROUGH LEFT CHEST PORT ORDERED. PT IS ABLE TO SLEEP MOST OF THE NIGHT.PT REFUSED TO WEAR THE BIPAP THIS SHIFT. MAINTAINED ON O2 SUPPORT AT 2L/NC. NO DESATURATION NOTED. POSITION CHANGES DONE, REFUSED SOME TURNS, EDUCATION PROVIDED. CALL LIGHT WITHIN REACH. HOURLY ROUNDING DONE FOR PT SAFETY.HIGH FALL PRECAUTIONS IN PLACE.
[2019-07-20 04:02] VITALS: BP 106/52
--- NOTE | 2019-07-20 11:43 | NUR ---
Spoke with , Pt confused today. Remains on o2. Dr in agreement that Pt will need rehab v snf at id, Pt needs to work more with therapies.
[2019-07-20 12:08] VITALS: BP 90/51
--- NOTE | 2019-07-20 15:02 | 2DMMODE ---
[place] [address] 2 D/M-MODE ECHOCARDIOGRAM Name: MARY WEBSTER Room: [address] IN [facility]#: [id number] Admission: 07/08/19 Attend Phys: Tripp Roche, Discharge: Date of : 48 Date of Service: 07/20/19 1501 Report #: [id number] THIS REPORT FOR: cc: Beba Dickerson,Beba Oropeza,Leopoldo Steiner MD [facility] ~ APPROVED REPORT Study performed: 07/20/2019 11:11:54 EXAM: Comprehensive 2D, Doppler, and color-flow Echocardiogram Patient Location: In-Patient Room #: [facility] Status: routine BSA: 1.60 HR: 87 bpm BP: 106/52 mmHg Rhythm: NSR Other Information Study Quality: Good Indications Dyspnea 2D Dimensions IVSd: 9.27 (7-11mm) LVOT Diam: 19.51 (18-24mm) LVDd: 38.77 mm PWd: 9.12 (7-11mm) LVDs: 24.57 (25-40mm) Aortic Root: 26.74 mm Volumes Left Atrial Volume (Systole) LA ESV Index: 20.40 mL/m2 Aortic Valve AoV Peak Sukumar.: 1.26 m/s AO Peak Gr.: 6.34 mmHg LVOT Max P.11 mmHg AO Mean Gr.: 4.01 mmHg LVOT Mean P.45 mmHg LVOT Max V: 1.13 m/s AO V2 VTI: 20.77 cm LVOT Mean V: 0.72 m/s WILLOW (VTI): 3.00 cm2 LVOT V1 VTI: 20.82 [place] [address] 2 D/M-MODE ECHOCARDIOGRAM Name: MARY WEBSTER Room: [address] IN ..#: [id number] Admission: 07/08/19 Attend Phys: Tripp Roche, Discharge: Date of : 48 Date of Service: 07/20/19 1501 Report #: [id number] Mitral Valve E/A Ratio: 0.86 MV Decel. Time: 199.01 ms MV E Max Sukumar.: 1.01 m/s MV PHT: 57.71 ms MVA (PHT): 3.81 cm2 TDI E/Lateral E': 16.83 E/Medial E': 16.83 Medial E' Sukumar.: 0.06 m/s Lateral E' Sukumar.: 0.06 m/s Left Ventricle The left ventricle is normal size. There is normal LV segmental wall motion. There is normal left ventricular wall thickness. Left ventricular systolic function is normal. The left ventricular ejection fraction is within the normal range. LVEF is 60-65%. Grade I - abnormal relaxation pattern. Right Ventricle The right ventricle is normal size. The right ventricular systolic function is normal. Atria The left atrium size is normal. The right atrium size is normal. Aortic Valve Mild aortic valve sclerosis. No aortic regurgitation is present. There is no aortic valvular stenosis. Mitral Valve There is mitral annular calcification. There is no mitral valve regurgitation noted. No evidence of mitral valve stenosis. Tricuspid Valve The tricuspid valve is normal in structure. There is no tricuspid valve regurgitation noted. Pulmonic Valve The pulmonary valve is normal in structure. There is no pulmonic valvular regurgitation. Great Vessels The aortic root is normal in size. IVC is normal in size and collapses >50% [place] [address] 2 D/M-MODE ECHOCARDIOGRAM Name: MARY WEBSTER Room: [address]#: [id number] Admission: 07/08/19 Attend Phys: Tripp Roche, Discharge: Date of : 48 Date of Service: 07/20/19 1501 Report #: [id number] Pericardium There is no pericardial effusion. <Conclusion> The left ventricle is normal size. There is normal left ventricular wall thickness. Left ventricular systolic function is normal. The left ventricular ejection fraction is within the normal range. LVEF is 60-65%. Grade I - abnormal relaxation pattern. The right ventricle is normal size. The left atrium size is normal. Mild aortic valve sclerosis. No aortic regurgitation is present. There is no aortic valvular stenosis. There is mitral annular calcification. There is no mitral valve regurgitation noted. No evidence of mitral valve stenosis. The tricuspid valve is normal in structure. IVC is normal in size and collapses >50% with inspiration. There is no pericardial effusion. There is normal LV segmental wall motion. <ELECTRONICALLY SIGNED> By: Leopoldo Rojo MD, FACC 07/20/19 1501 1501 1501 Leopoldo Rojo MD, FACC /INF
[2019-07-20 16:17] VITALS: BP 109/55
[2019-07-21] VITALS: BP 148/60
--- NOTE | 2019-07-21 02:03 | NUR ---
DR NOTIFIED OF PATIENT DEACCESS OF PORT-A-CATH LINE. DR CASTILLO WAS OK WITH PATIENT NOT HAVING A LINE AT THIS TIME IT WAS THE SECOND LINE SHE HAD PULLED IN LESS THAN 24 HOURS
[2019-07-21 04:00] VITALS: BP 94/52
[2019-07-21 04:13] VITALS: BP 81/47
--- NOTE | 2019-07-21 05:30 | NUR ---
ASSUMED PATIENT CARE AT 1900. PATIENT ALERT AND ORIENTED TIMES FOUR. IMPULSIVE, PULLED PORT-A-CATH ACCESS OUT. DR. GUZMAN. SEE NOTE. STRAW BALER AND HOURLY ROUNDING COMPLETED DOCUMENTED.
[2019-07-21 05:41] LABS: HEMATOCRIT 28.9 % (37.0-47.0); HEMOGLOBIN 9.6 gm/dL (12.0-15.0); MCH 30.3 pg (26.0-34.0); MCV 91.7 fL (80.0-100.0); MPV 9.2 fl. (7.2-11.1); RBC 3.16 mil/uL (4.20-5.00); RDW-CV 18.5 % (10.5-14.5); WBC 11.4 thou/uL (4.0-11.0)
[2019-07-21 05:55] LABS: ALBUMIN 2.9 g/dL (3.4-5.0); CALCIUM 8.2 mg/dL (8.5-10.1); CREATININE 1.3 mg/dL (0.6-1.3); MAGNESIUM 2.4 mg/dL (1.8-2.4); POTASSIUM 4.8 mmol/L (3.5-5.1); TOTAL BILIRUBIN 0.4 mg/dL (<0.1-1.0); TOTAL PROTEIN 5.8 g/dL (6.4-8.2)
--- NOTE | 2019-07-21 10:17 | NUR ---
CM spoke with rep at Pt's insurance company, the only 3 skilled facilities that are in network with Pt's insurance are [facility] and [facility], referrals faxed to all 3. Per rep, there are no acute rehabs in network. Following.
[2019-07-21 11:52] VITALS: BP 90/53
[2019-07-21 19:30] VITALS: BP 97/71
--- NOTE | 2019-07-21 20:20 | NUR ---
ASSUMED PT CARE AT 0730. ASSESSMENT COMPLETED CHARTED. ABLE TO MAKE NEEDS KNOWN. UP WITH SBA. STATES SHE WANTS TO GO HOME TODAY. NO C/O PAIN OR DISCOMFORT. PT DIFFICULT AND FORGETFUL. RESTING IN BED MOST OF THE DAY. CALL LIGHT WITHIN REACH. WILL CONTINUE TO MONITOR.
[2019-07-22] VITALS: BP 107/68
[2019-07-22 04:00] VITALS: BP 99/57
[2019-07-22 08:34] VITALS: BP 111/67
[2019-07-22 13:57] VITALS: BP 96/66
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
[2019-07-22 17:17] VITALS: BP 120/74
--- NOTE | 2019-07-22 19:00 | NUR ---
ASSUMED PT CARE AT 0730. ASSESSMENT COMPLETED CHARTED. ABLE TO MAKE NEEDS KNOWN. NO C/O PAIN OR DISCOMFORT. PT TELLING PEOPLE TO GET OUT OF HER ROOM MULTIPLE TIMES TODAY. WANTED TO LEAVE AND DPOA WAS AT BEDSIDE STATING SHE CAN'T LEAVE. STATED PT CANNOT LEAVE AMA. CALLED SECURITY AND CALMED PT DOWN. RESTING IN BED AT THIS TIME. WILL CONTINUE TO MONITOR.
[2019-07-23] VITALS: BP 100/59
[2019-07-23 04:00] VITALS: BP 93/61
[2019-07-23 04:28] LABS: HEMATOCRIT 29.2 % (37.0-47.0); HEMOGLOBIN 9.7 gm/dL (12.0-15.0); MCH 30.3 pg (26.0-34.0); MCV 91.8 fL (80.0-100.0); MPV 9.1 fl. (7.2-11.1); RBC 3.19 mil/uL (4.20-5.00); WBC 11.1 thou/uL (4.0-11.0)
--- NOTE | 2019-07-23 04:45 | NUR ---
APPROX 0350 PT GOT OUT OF BED AND REFUSED TO GET BACK INTO BED OR TO A CHAIR, NONE COMPLIANT WITH FALL PRECAUTIONS. REMAINED IN ROOM FOR APPOX AN HOUR TILL PT COMPLIED WITH PRECAUTIONS AND PT WAS SAFE TO LEAVE ALONE IN ROOM. PT AGITATED AND STATES SHE WANTS TO GO HOME. EXPLAINED TO PT WHY FALL PRECAUTIONS ARE NEEDED. BED ALARM PLACED ON PT WRIST BAND AND YELLOW SOCKS APPIED TO PT. HOURLY ROUNDING FOR SAFETY.
--- NOTE | 2019-07-23 04:52 | NUR ---
PT REFESES TO TAKE MEDICAITONS, STATES SHE WILL TAKE THEM "LATER" WILL PASS INFORMATION TO ONCOMING SHIFT.
[2019-07-23 04:54] LABS: ALBUMIN 3.1 g/dL (3.4-5.0); CREATININE 1.3 mg/dL (0.6-1.3); MAGNESIUM 2.2 mg/dL (1.8-2.4); POTASSIUM 4.6 mmol/L (3.5-5.1); TOTAL BILIRUBIN 0.5 mg/dL (<0.1-1.0); TOTAL PROTEIN 6.3 g/dL (6.4-8.2)
[2019-07-23 08:00] VITALS: BP 99/51
[2019-07-23 11:26] VITALS: BP 95/65
[2019-07-23 16:39] VITALS: BP 113/85
--- NOTE | 2019-07-23 18:31 | NUR ---
ASSUMED PT CARE AT 0730, FULL ASSESMENT DONE CHARTED. PATIENT PLEASANT THIS MORNING WHEN I FIRST ENTERED ROOM, BUT DOES GET IMPATIENT VERY EASILY. SHE WANTS TO DISCHARGE. AFTER THE DR SAW HER TODAY, SHE CALLED HER DPOA AND STATED THAT SHE WAS DISCHARGED AND WANTED HIM TO COME PICK HER UP. HE CALLED THIS NURSE ASKING ABOUT THE SITUATION. NURSE LET HIM KNOW THAT SHE IS NOT DISCHARGED. WHEN DISCUSSING THIS WITH THE PATIENT SHE BECAME ANGRY AND SAID THE DR TOLD HER SHE COULD LEAVE TO GET CLOTHES AND COME BACK. SHE WAS EDUCATED THAT IF SHE LEFT THE HOSPITAL IT WOULD BE CONSIDERED LEAVING AMA, SHE STATES "YOU ARE A LIER". PT REPEATEDLY INERRUPTS STAFF WHEN SPEAKING TO HER. SHE REFUSES SOME MEDICATIONS. REFUSED TO LET PT TO WALK HER TO THE BATHROOM OR SET HER BED ALARM. PT REMAINS ON RA, SATS MID 90'S, VSS, SR ON THE MONITOR.
[2019-07-24] VITALS: BP 96/50
[2019-07-24 04:00] VITALS: BP 100/62
--- NOTE | 2019-07-24 07:20 | NUR ---
CHANGE OF SHIFT, BEDSIDE REPORT GIVEN PATIENT SEEN AT BEDSIDE, IN BED WATCHING TV ASSUMED APTIENT CARE
[2019-07-24 08:00] VITALS: BP 126/73
--- NOTE | 2019-07-24 08:56 | NUR ---
ASSUMED PATIENT CARE AT 1900. ASSESSMENT COMPLETED CHARTED. PATIENT IS NSR ON THE MONITOR. HOURLY ROUNDING IN PLACE FOR PATIENT SAFETY. CLWR.
[2019-07-24 12:00] VITALS: BP 117/63
[2019-07-24 16:00] VITALS: BP 117/64; BP 130/74
[2019-07-24 20:00] VITALS: BP 106/63
[2019-07-25] VITALS: BP 98/50
[2019-07-25 04:00] VITALS: BP 117/78
--- NOTE | 2019-07-25 04:50 | NUR ---
ASSUMED PATIENT CARE AT 1900. ASSESSMENT COMPLETED CHARTED. PATIENT IS NSR ON THE MONITOR. HOURLY ROUNDING IN PLACE FOR PATIENT SAFETY. CLWR.
[2019-07-25 08:00] VITALS: BP 119/64
[2019-07-25 09:29] VITALS: BP 119/64
--- NOTE | 2019-07-25 11:09 | NUR ---
ASSUMED CARE OF PT AT 0730. PT SITTING AT EDGE OF BED, STATING "I AM LEAVING TODAY, IM WAITING FOR ESTRELLITA TO GET HERE AND IM OUT OF HERE". PT ENCOURAGED TO SPEAK WITH PHYSICIAN. PT REFUSING. DR SHOEMAKER NOTIFIED AND HERE TO SEE SPEAK WITH PT. PT NOT DISCHARGED PER DR SHOEMAKER. PT SIGNED AMA FORM AND COMMUNICATES UNDERSTANDING AND RISKS OF LEAVING. ESTRELLITA CALLED AND IS ON HER WAY TO [place] PT. AM ASSESSMENT CHARTED. MEDICATIONS PER JUL. PT TRANSPORTED TO FRONT OF HOSPITAL TO RIDE VIA NURSING STAFF. FACILITIES ENGINEERING MANAGER REMOVED. NO IV ACCESS.
== END 2019-07-25 11:10 | disposition left against medical advice (07) | DRG 871 ==
LOC: M.ERS 17:11 → M.2W 18:38 → M.ICU 18:38 → M.TBA-ER 18:38 → M.2W 19:40 → M.ICU 07-10 09:57 → M.2W 07-17 11:44
PROVIDERS: Emergency Medicine; Family Medicine; Internal Medicine; ADMIT Internal Medicine
PROC: 5A09357 Assistance with Respiratory Ventilation, Less than 24 Consecutive Hours, Continuous Positive Airway Pressure (ICD-10-PCS; principal; 2019-07-10)
PROC: 5A09357 Assistance with Respiratory Ventilation, Less than 24 Consecutive Hours, Continuous Positive Airway Pressure (ICD-10-PCS; 2019-07-11)
PROC: 5A09357 Assistance with Respiratory Ventilation, Less than 24 Consecutive Hours, Continuous Positive Airway Pressure (ICD-10-PCS; 2019-07-12)
PROC: 5A09357 Assistance with Respiratory Ventilation, Less than 24 Consecutive Hours, Continuous Positive Airway Pressure (ICD-10-PCS; 2019-07-13)
PROC: 5A09357 Assistance with Respiratory Ventilation, Less than 24 Consecutive Hours, Continuous Positive Airway Pressure (ICD-10-PCS; 2019-07-14)
PROC: 5A09357 Assistance with Respiratory Ventilation, Less than 24 Consecutive Hours, Continuous Positive Airway Pressure (ICD-10-PCS; 2019-07-15)
PROC: 5A09357 Assistance with Respiratory Ventilation, Less than 24 Consecutive Hours, Continuous Positive Airway Pressure (ICD-10-PCS; 2019-07-17)
DX: A41.9 Sepsis, unspecified organism (principal); J18.0 Bronchopneumonia, unspecified organism; J96.21 Acute and chronic respiratory failure with hypoxia; J96.22 Acute and chronic respiratory failure with hypercapnia; G93.41 Metabolic encephalopathy; M48.54XA Collapsed vertebra, not elsewhere classified, thoracic region, initial encounter for fracture; J44.0 Chronic obstructive pulmonary disease with (acute) lower respiratory infection; J44.1 Chronic obstructive pulmonary disease with (acute) exacerbation; I50.32 Chronic diastolic (congestive) heart failure; E78.00 Pure hypercholesterolemia, unspecified; I11.0 Hypertensive heart disease with heart failure; E03.8 Other specified hypothyroidism; F10.129 Alcohol abuse with intoxication, unspecified; J84.10 Pulmonary fibrosis, unspecified; J20.9 Acute bronchitis, unspecified; K21.9 Gastro-esophageal reflux disease without esophagitis; E11.9 Type 2 diabetes mellitus without complications; Z53.29 Procedure and treatment not carried out because of patient's decision for other reasons; I25.10 Atherosclerotic heart disease of native coronary artery without angina pectoris; E78.5 Hyperlipidemia, unspecified; Z87.891 Personal history of nicotine dependence; Z82.49 Family history of ischemic heart disease and other diseases of the circulatory system; Z92.21 Personal history of antineoplastic chemotherapy; Z79.82 Long term (current) use of aspirin; Z79.899 Other long term (current) drug therapy; Z88.0 Allergy status to penicillin; Z79.51 Long term (current) use of inhaled steroids; Z79.2 Long term (current) use of antibiotics; Z85.118 Personal history of other malignant neoplasm of bronchus and lung; Z90.710 Acquired absence of both cervix and uterus

== ENCOUNTER 2020-12-18 11:09 | Inpatient (IN) | payer OTHER, MEDICAID ==
[~2020-12-18] VITALS: Ht 157.5 cm; Wt 74.1 kg
--- NOTE | ~2020-12-18 | EKG ---
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
--- NOTE | ~2020-12-18 | CON ---
[address] [address] CONSULTATION Name: MARY WEBSTER Room: [address] IN M.R.#: [id number] Admission: 12/18/20 Attend Phys: Geetha Garcia MD Discharge: 01/09/21 Date of : 48 Report #: [id number] THIS REPORT FOR: cc: Beba Dickerson,Estelita Tesfaye MD ~ cc: Beba Dickerson DO DATE OF CONSULTATION: 01/04/2021 REQUESTING PHYSICIAN: Dr. Geetha Garcia. CONSULTING PHYSICIAN: Dr. Beba Dickerson. REASON FOR CONSULTATION: History of Clostridium difficile. HISTORY OF PRESENT ILLNESS: This is a 70-year-old female with history of lung cancer, chronic kidney disease, chronic obstructive pulmonary disease, coronary artery disease, and hypertension, who has had respiratory failure and was intubated during this hospitalization. The patient has been admitted since 12/18/2020. During her hospitalization, she was found to have Clostridium difficile and currently is on vancomycin. Per nursing, she has not had any bowel movements. There is no report of hematochezia, melena or hematemesis as patient is intubated. She has anemia, which appears to be stable. Since patient is sedated and intubated, I cannot obtain any information from her. All the information was obtained from reading the chart and reviewing imaging and labs. PAST MEDICAL HISTORY: Significant for history of lung CA, chronic obstructive pulmonary disease, coronary artery disease, hypertension, hypercapnic respiratory failure, acute over chronic renal failure, peripheral vascular disease, atrial flutter, elevation of troponin, Clostridium difficile, bacteremia. ALLERGIES: SIGNIFICANT FOR PENICILLIN. MEDICATIONS: Please refer to MAR. SOCIAL HISTORY: The patient has a history of lung cancer. She is a former smoker, but has quit more than a year ago. She also apparently drank alcohol occasionally. FAMILY HISTORY: [place] [address] CONSULTATION Name: MARY WEBSTER Room: [address]#: [id number] Admission: 12/18/20 Attend Phys: Geetha Garcia MD Discharge: 01/09/21 Date of : 48 Report #: [id number] PHYSICAL EXAMINATION: VITAL SIGNS: Include blood pressure of 105/55, pulse 66, respirations 16, temperature 96.6. GENERAL: The patient is intubated and not arousable. LUNGS: Breath sounds are audible bilaterally. CARDIAC: Tachycardic. ABDOMEN: Mildly distended. Bowel sounds positive. LABORATORY DATA: Include sodium of 137, potassium is 4.0, BUN is 62, creatinine is 3.3, glucose is 297, AST is 46, alkaline phosphatase 76, total bilirubin 0.7, ALT is 33, albumin is 2.4. The patient has evidence of iron deficiency anemia in the past based on previous labs. WBC is 22, hemoglobin is 8.3, up from 6.2 after patient has been transfused. Platelet count is 90. ASSESSMENT AND PLAN: 1. The patient with history of iron deficiency anemia and drop in hemoglobin requiring blood transfusion, whose hemoglobin is 8.3. We will continue to monitor this. The patient also has Clostridium difficile, but is not having diarrhea and is on vancomycin. 2. Chronic obstructive pulmonary disease exacerbation and hypercapnic respiratory failure for which she is intubated. 3. Acute over chronic kidney failure. She is currently getting serologic workup as there is no evidence of obstruction on the renal ultrasound. 4. Bacteremia, Escherichia coli, most probably from urinary tract infection. The patient is on Levaquin. 5. In reference to her anemia, we will continue monitoring her hemoglobin and hematocrit. She will need endoscopic evaluation once medically stable. She also has elevated troponin for which she needs cardiology workup as well. We will most likely perform endoscopic evaluation after those tests and evaluations are completed. In reference to her positive C. diff, she is not having any bowel movements and she is on vancomycin. We will continue vancomycin for a few more days and then discontinue. By: 1119 1907Estelita Pérez MD /estefanía
[~2020-12-18 11:09] MED LIST changes: +ALBUTEROL NEB; +ASA81BEC PO; +PLAVIX 75 MG TA75 MG PO; +PRAVACHOL40 MG PO; +VENTOLIN HFA 1818 GM INH
[2020-12-18 11:11] VITALS: BP 154/88
[2020-12-18 12:04] LABS: ABSOLUTE LYMPHOCYTES 1.2 thou/uL (0.8-5.3); NUCLEATED RBCS 0 /100WBC
[2020-12-18 12:07] LABS: ABSOLUTE BASOPHILS 0.1 thou/uL (0.0-0.2); ABSOLUTE MONOCYTES 0.6 thou/uL (0.0-1.2); EOSINOPHILS 0.2 %; HEMATOCRIT 42.1 % (37.0-47.0); HEMOGLOBIN 13.8 gm/dL (12.0-15.0); LYMPHOCYTES 10.9 %; MCH 29.6 pg (26.0-34.0); MCHC 32.8 g/dL (28.0-37.0); MCV 90.4 fL (80.0-100.0); MONOCYTES 5.6 %; MPV 7.8 fl. (7.2-11.1); PLATELET COUNT* 365 thou/uL (150-400); POLYS 82.3 %; RBC 4.66 mil/uL (4.20-5.00); RDW-CV 16.1 % (10.5-14.5); WBC 10.9 thou/uL (4.0-11.0)
[2020-12-18 12:14] LABS: CALCIUM 9.5 mg/dL (8.5-10.1); CREATININE 1.7 mg/dL (0.6-1.3); POTASSIUM 3.6 mmol/L (3.5-5.1)
[2020-12-18 12:27] LABS: TOTAL BILIRUBIN 0.5 mg/dL (<0.1-1.0); TOTAL PROTEIN 7.5 g/dL (6.4-8.2)
--- NOTE | 2020-12-18 16:26 | EKG ---
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 : 1950 Requested By: Zahra De La Cruz Order Number: [id number] MD: Sherman Louis Measurements Intervals [place] Rate: 101 P: 83 PA: 204 QRS: -2 QRSD: 118 T: 92 QT: 360 QTc: 467 Interpretive Statements Sinus tachycardia Right atrial enlargement Nonspecific ST-T wave abnormality Baseline wander in lead(s) V6 Compared to ECG 07/09/2019 15:58:23 Atrial abnormality now present Intraventricular conduction delay now present ST (T wave) deviation now present Myocardial infarct finding no longer present Electronically Signed On 12-18-2020 16:26:32 CDT by Sherman Louis [email or web address] <ELECTRONICALLY SIGNED> By: Sherman Louis MD, [facility] 12/18/20 1626 1147 1147 Sherman Louis MD, [facility] /EPI
[2020-12-18 18:16] VITALS: BP 143/58
[2020-12-18 22:16] VITALS: BP 87/47
[2020-12-19 02:16] VITALS: BP 108/70
[2020-12-19 06:03] LABS: HEMATOCRIT 37.2 % (37.0-47.0); MCH 28.7 pg (26.0-34.0); MCHC 31.5 g/dL (28.0-37.0); MCV 91.2 fL (80.0-100.0); MPV 7.7 fl. (7.2-11.1); RBC 4.08 mil/uL (4.20-5.00); RDW-CV 16.3 % (10.5-14.5); WBC 8.7 thou/uL (4.0-11.0)
[2020-12-19 06:05] LABS: HEMOGLOBIN 11.7 gm/dL (12.0-15.0)
[2020-12-19 06:17] LABS: ALBUMIN 2.3 g/dL (3.4-5.0); CALCIUM 8.1 mg/dL (8.5-10.1); CREATININE 1.5 mg/dL (0.6-1.3); MAGNESIUM 1.5 mg/dL (1.8-2.4); POTASSIUM 3.3 mmol/L (3.5-5.1); TOTAL BILIRUBIN 0.2 mg/dL (<0.1-1.0); TOTAL PROTEIN 6.1 g/dL (6.4-8.2)
[2020-12-19 08:25] VITALS: BP 107/65
--- NOTE | 2020-12-19 11:05 | EKG ---
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: JOAN : 1950 Requested By: Mallory Mosqueda Order Number: [id number] MD: Molina Bernard Measurements Intervals [place] Rate: 107 P: 85 NC: 178 QRS: 19 QRSD: 80 T: 128 QT: 363 QTc: 485 Interpretive Statements Sinus tachycardia Supraventricular bigeminy Low voltage, extremity leads Nonspecific repol abnormality, diffuse leads Borderline prolonged QT interval Compared to ECG 12/18/2020 11:47:25 Atrial premature complex(es) now present Early repolarization now present Atrial abnormality no longer present Electronically Signed On 12-19-2020 11:05:45 CDT by Molina Bernard [email or web address] <ELECTRONICALLY SIGNED> By: Molina Bernard MD, [facility] 12/19/20 1105 47 2148 Molina Bernard MD, [facility] /EPI
[2020-12-19 12:10] VITALS: BP 130/59
--- NOTE | 2020-12-19 13:17 | 2DMMODE ---
[place] [address] 2 D/M-MODE ECHOCARDIOGRAM Name: MARY WEBSTER Room: [address] IN [facility]#: [id number] Admission: 12/18/20 Attend Phys: Geetha Garcia, Discharge: Date of : 48 Date of Service: 12/19/20 1317 Report #: [id number] THIS REPORT FOR: cc: Beba Dickerson,Beba Howard,Molina Agarwal MD [facility] ~ APPROVED REPORT Study performed: 12/19/2020 10:58:38 EXAM: Comprehensive 2D, Doppler, and color-flow Echocardiogram Patient Location: In-Patient Room #: er Status: routine BSA: 1.49 HR: 87 bpm BP: 107/61 mmHg Rhythm: NSR Other Information Study Quality: Good Indications Dyspnea 2D Dimensions IVSd: 9.41 (7-11mm) LVOT Diam: 18.83 (18-24mm) LVDd: 40.90 mm PWd: 7.96 (7-11mm) Ascending Ao: 25.72 (22-36mm) LVDs: 28.40 (25-40mm) Aortic Root: 26.10 mm Volumes Left Atrial Volume (Systole) LA ESV Index: 24.10 mL/m2 Aortic Valve AoV Peak Sukumar.: 1.47 m/s AO Peak Gr.: 8.68 mmHg LVOT Max P.86 mmHg AO Mean Gr.: 5.02 mmHg LVOT Mean P.56 mmHg LVOT Max V: 0.85 m/s AO V2 VTI: 26.77 cm LVOT Mean V: 0.58 m/s WILLOW (VTI): 1.73 cm2 LVOT V1 VTI: 16.60 [place] [address] 2 D/M-MODE ECHOCARDIOGRAM Name: MARY WEBSTER Room: [address] IN ..#: [id number] Admission: 12/18/20 Attend Phys: Geetha Garcia, Discharge: Date of : 48 Date of Service: 12/19/20 1317 Report #: [id number] Mitral Valve E/A Ratio: 0.69 MV Decel. Time: 190.62 ms MV E Max Sukumar.: 0.85 m/s MV PHT: 55.28 ms MVA (PHT): 3.98 cm2 TDI E/Lateral E': 10.63 E/Medial E': 14.17 Medial E' Sukumar.: 0.06 m/s Lateral E' Sukumar.: 0.08 m/s Pulmonary Valve PV Peak Sukumar.: 1.01 m/s PV Peak Gr.: 4.07 mmHg Left Ventricle The left ventricle is normal size. There is normal LV segmental wall motion. There is normal left ventricular wall thickness. Left ventricular systolic function is normal. The left ventricular ejection fraction is within the normal range. LVEF is 55-60%. Grade I - abnormal relaxation pattern. Right Ventricle The right ventricle is normal size. The right ventricular systolic function is normal. Atria The left atrium size is normal. The right atrium size is normal. Aortic Valve Mild aortic valve sclerosis. trace aortic regurgitation. There is no aortic valvular stenosis. Mitral Valve There is mitral annular calcification. The mitral valve is normal in structure. Mild mitral regurgitation. No evidence of mitral valve stenosis. Tricuspid Valve The tricuspid valve is normal in structure. Unable to assess PA pressure. Trace tricuspid regurgitation. Pulmonic Valve The pulmonary valve is normal in structure. There is no pulmon[place] [address] 2 D/M-MODE ECHOCARDIOGRAM Name: MARY WEBSTER Room: [address]#: [id number] Admission: 12/18/20 Attend Phys: Geetha Garcia, Discharge: Date of : 48 Date of Service: 12/19/20 1317 Report #: [id number] Great Vessels The aortic root is normal in size. IVC is normal in size and collapses >50% with inspiration. Pericardium There is no pericardial effusion. <Conclusion> LVEF is 55-60%. Mild aortic valve sclerosis. trace aortic regurgitation. Mild mitral regurgitation. <ELECTRONICALLY SIGNED> By: Molina Bernard MD, [facility] 12/19/201316 16 16 Molina Bernard MD, FAC /INF
[2020-12-19 13:26] VITALS: BP 129/73
--- NOTE | 2020-12-19 14:05 | NUR ---
PT ADMITTED TO ROOM. PT ORIENTED TO ROOM. PT VERY CRANKY AND DID NOT COOPERATE WELL WITH ADMISSION QUESTIONS. PHYSICAL THERAPY CAME INTO PATIENTS ROOM SHORTLY AFTER ARRIVING TO FLOOR. TELE MONITOR ON. FALL RISK PRECAUTIONS IN PLACE.
[2020-12-19 16:00] VITALS: BP 134/74
--- NOTE | 2020-12-19 16:06 | NUR ---
PT REMAINED ALERT AND ORIENTED. PT RESTING IN BED AND IRRITABLE. FALL RISK PRECAUTIONS IN PLACE. HOURLY ROUNDING COMPLETED. CALL LIGHT WITHIN REACH.
--- NOTE | 2020-12-19 18:16 | NUR ---
PT REMAINED ALERT AND HALLUCINATING. PT VERY CRANKY AND HAS YELLED AT ME MULTIPLE TIMES TO GET OUT OF HER ROOM. FALL RISK PRECAUTIONS IN PLACE. HOURLY ROUNDING COMPLETED., CALL LIGHT WITHIN REACH.
[2020-12-19 20:00] VITALS: BP 113/92
[2020-12-20 01:20] VITALS: BP 81/55
[2020-12-20 03:30] VITALS: BP 63/36
[2020-12-20 04:30] LABS: HEMATOCRIT 30.5 % (37.0-47.0); MCH 29.4 pg (26.0-34.0); MCHC 32.7 g/dL (28.0-37.0); MCV 89.8 fL (80.0-100.0); RBC 3.4 mil/uL (4.20-5.00); RDW-CV 16.3 % (10.5-14.5); WBC 9.2 thou/uL (4.0-11.0)
[2020-12-20 05:01] LABS: ALBUMIN 2.1 g/dL (3.4-5.0); ALKALINE PHOSPHATASE 62 U/L (46-116); ANION GAP 3 mmol/L (7-16); BUN 15 mg/dL (7-18); CHLORIDE 108 mmol/L (98-107); CHOLESTEROL 225 mg/dL (<200); CO2 32 mmol/L (21-32); CREATININE 1.4 mg/dL (0.6-1.3); GLUCOSE 147 mg/dL (70-99); HDL CHOLESTEROL 53 mg/dL (>40); LDL CHOLESTEROL 151 mg/dL (<100); MAGNESIUM 1.8 mg/dL (1.8-2.4); SGOT 30 U/L (15-37); SGPT 20 U/L (30-65); SODIUM 143 mmol/L (136-145); TC:HDL 4.2 Ratio (Not establshd); TOTAL BILIRUBIN 0.2 mg/dL (<0.1-1.0); TOTAL PROTEIN 5.5 g/dL (6.4-8.2); TRIGLYCERIDE 106 mg/dL (<150); TROPONIN-I LEVEL 0.41 ng/mL (<0.06); VLDL 21 mg/dL (<40)
[2020-12-20 05:06] LABS: POTASSIUM 4.3 mmol/L (3.5-5.1)
[2020-12-20 05:50] LABS: SERUM ASSESSMENT Clear
--- NOTE | 2020-12-20 06:56 | NUR ---
Alert and oriented x 4. She answers questions appropriately. She has been NSR on the monitor and she had an EKG due to a very low BP and it was NSR also. She denies feeling dizzy. She has a liter of normal saline running for low BP. K+ 40meq and MG+ 800mg given last evening per protocol. K+ is in normal limits but MG+ is 1.8, 400mg given this am. She is incontinent of urine. Red areas observed on her buttocks mostly on rt buttocks. She has not slept much this shift.
[2020-12-20 07:00] VITALS: BP 76/47
--- NOTE | 2020-12-20 09:41 | CON ---
[address] [address] CONSULTATION Name: MARY WEBSTER Room: [address] IN M.R.#: [id number] Admission: 12/18/20 Attend Phys: Geetha Garcia MD Discharge: Date of : 48 Report #: [id number] THIS REPORT FOR: cc: Beba Dickerson,Sherman Terrazas MD FAC ~ cc: Beba Dickerson DO CARDIOLOGY CONSULTATION INDICATION: Elevated troponin. HISTORY OF PRESENT ILLNESS: The patient is a 70-year-old white female brought to the hospital after being found lying at home, unable to get up. She apparently had been lying on the ground for several hours. She has pain in her right hip that she was lying on. She denies any chest pain or shortness of breath. Evaluation included a troponin, which was 0.34. She is not having any chest pain. Her EKG shows sinus rhythm without acute ST or T-wave abnormality. She has a history of peripheral vascular disease with previous iliac stenting and unhealing ulcers in her feet, but no history of coronary artery disease. Stress testing approximately 5 years ago was unremarkable. Cardiac risk factors include hypertension, dyslipidemia and remote tobacco use. PAST MEDICAL HISTORY: Significant for COPD, lung cancer, status post chemo, partial hysterectomy, hypertension, hyperlipidemia. The chart also reports coronary artery disease, although I have not seen this documented anywhere else. ALLERGIES: PENICILLIN. HOME MEDICATIONS: Lisinopril 10 mg daily, pravastatin 40 mg daily, Plavix 75 mg daily, enteric-coated aspirin 81 mg daily, Ventolin inhaler q.4 hours p.r.n. SOCIAL HISTORY: The patient drinks alcohol occasionally. She quit smoking years ago. FAMILY HISTORY: Noncontributory. REVIEW OF SYSTEMS: A 14-point review of systems is positive for joint pain, shortness of breath, dyspnea on exertion, wheezing, asthma, COPD and occasional lightheadedness or dizziness. Otherwise, unremarkable. PHYSICAL EXAMINATION: VITAL SIGNS: Blood pressure is 128/87, pulse is 92. GENERAL: This is a thin, pleasant elderly female [place] [address] CONSULTATION Name: MARY WEBSTER Room: [address]#: [id number] Admission: 12/18/20 Attend Phys: Geetha Garcia MD Discharge: Date of : 48 Report #: [id number] affect appropriate. HEENT: Normocephalic, atraumatic. Extraocular muscles intact. Mucous membranes are moist. NECK: Examination of the neck shows no jugular venous distention. CHEST: Reveals diffuse wheezes throughout with diminished breath sounds and crackles. CARDIAC: Reveals a distant S1 and S2 without gallop or murmur. ABDOMEN: Reveals normal bowel sounds. Abdomen is soft, nontender. EXTREMITIES: Shows no edema. SKIN: Dry. DIAGNOSTIC DATA: A 12-lead EKG shows sinus rhythm with nonspecific ST segment and T-wave abnormality without acute elevation. I do not appreciate any pathologic Q-waves. LABORATORY DATA: Reviewed. Sodium 147, potassium 3.6, chloride 105, bicarbonate 30, BUN 18, creatinine 1.7, serum glucose 106. Liver function studies are within normal limits. Troponin on arrival 0.30 and subsequently 0.34. White blood cell count 10.9, hemoglobin 13.8, platelet count 365,000. Chest x-ray shows no acute abnormalities. IMPRESSION AND RECOMMENDATIONS: 1. Elevated troponin. The patient is not having any symptoms to suggest acute coronary syndrome. At this point in time, I would obtain echocardiogram and not pursue other invasive evaluation. 2. Hypertension, adequately controlled presently. 3. Dyslipidemia. Fasting lipid profile will be checked. 4. Peripheral vascular disease, presently appears stable. 5. Chronic obstructive pulmonary disease with exacerbation. The patient is receiving breathing treatments at present. 6. History of lung cancer. Stage not appreciated in current available charts. <ELECTRONICALLY SIGNED> By: Sherman Louis MD, FACC 12/20/20 0941 1646 Sherman Louis MD, FACC /nt
--- NOTE | 2020-12-20 10:22 | EKG ---
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: GRAEME : 1950 Requested By: Daniel Porter Order Number: [id number] Reading MD: Molina Bernard Measurements Intervals [place] Rate: 97 P: 74 FL: 201 QRS: 29 QRSD: 73 T: 175 QT: 348 QTc: 442 Interpretive Statements Sinus rhythm nonspecific t wave changes Low voltage, extremity leads Right ventricular hypertrophy Abnormal lateral Q waves Compared to ECG 12/18/2020 21:48:17 Right ventricular hypertrophy now present Sinus tachycardia no longer present Atrial premature complex(es) no longer present Electronically Signed On 12-20-2020 10:22:11 CDT by Molina Bernard [email or web address] <ELECTRONICALLY SIGNED> By: Molina Bernard MD, [facility] 12/20/20 1022 0 0 Molina Bernard MD, [facility] /EPI
[2020-12-20 12:00] VITALS: BP 100/69
--- NOTE | 2020-12-20 13:11 | NUR ---
Pt is A&O, some confusion. Pt familiar to CM from previous hospital stay last year. Pt states that she resides at home alone. Has inhome caregivers that come in on Tuesdays and for 2 hrs/day. Pt states that they are new and she is unsure of the agency that they are through. Pt has a walker and cane at home for mobility. Pt has a neb that she uses 4 times/day. Hx of [facility]. No hx of SNF. Pt states that she wants to return home at dc, Pt states that she does not want HH. Neuro following, recommending SNF/placement, Pt refused to work with therapies yesterday, will need Pt to work with therapies in order to get insurance to authorize, will also need Pt to consent to go to SNF. CM attempted to contact Pt's listed DPOA, Kashmir Bates, DPOA's voicemail is full so unable to leave message. CM attempted to contact Pt's emergency contact, [place], this is a non working number. CM left for Iam with [facility], await call back. Pt to have repeat EEG today. No home o2.
[2020-12-20 14:23] LABS: CALCIUM 8.3 mg/dL (8.5-10.1); CREATININE 1.7 mg/dL (0.6-1.3); POTASSIUM 4.1 mmol/L (3.5-5.1)
[2020-12-20 16:00] VITALS: BP 101/71
[2020-12-20 20:05] VITALS: BP 100/69
[2020-12-21] VITALS (7 sets, daily range): BP systolic 84–119; BP diastolic 49–88
--- NOTE | 2020-12-21 01:49 | NUR ---
Patient alert. Patient bacame restless and dyspneic tonight. HR in 140's and SAT in low 80'S. Patient was then placed on NRB and then switched to BIPAP. notified of the event. Ordered to give patient 20MG of lASIX AND 0.5 of Xanax. bladder scan with noted 70ml of urine. Bladder scan with 70ml of urine. Will continue to care.
[2020-12-21 04:23] LABS: HEMATOCRIT 37.5 % (37.0-47.0); HEMOGLOBIN 11.6 gm/dL (12.0-15.0); MCH 28.8 pg (26.0-34.0); MCHC 30.9 g/dL (28.0-37.0); MPV 8.3 fl. (7.2-11.1); RBC 4.04 mil/uL (4.20-5.00); RDW-CV 16.8 % (10.5-14.5); WBC 13.5 thou/uL (4.0-11.0)
[2020-12-21 04:46] LABS: ALBUMIN 2.8 g/dL (3.4-5.0); CALCIUM 8.7 mg/dL (8.5-10.1); CREATININE 2.1 mg/dL (0.6-1.3); MAGNESIUM 2.3 mg/dL (1.8-2.4); TOTAL BILIRUBIN 0.2 mg/dL (<0.1-1.0); TOTAL PROTEIN 7.2 g/dL (6.4-8.2)
[2020-12-21 04:48] LABS: POTASSIUM 5.1 mmol/L (3.5-5.1)
[2020-12-21 09:44] LABS: BE 0.5 mmol/L (-2 to +3)
[2020-12-21 09:47] LABS: PCO2 68.1 mmHg (35.0-45.0); PO2 179.1 mmHg (75.0-100.0); pH 7.251 (7.340-7.450)
[2020-12-21 11:08] LABS: URINE BILIRUBIN NEGATIVE (Negative); URINE BLOOD 1+ (Negative); URINE CLARITY CLEAR; URINE COLOR YELLOW; URINE GLUCOSE-RANDOM NEGATIVE (Negative); URINE KETONES NEGATIVE (Negative); URINE LEUKOCYTES-REFLEX NEGATIVE (Negative); URINE NITRITE-REFLEX NEGATIVE (Negative); URINE PROTEIN TRACE (Negative); URINE UROBILINOGEN 0.2 E.U./dl (0.2-1.0)
[2020-12-21 11:15] LABS: CASTS None Seen /LPF (None Seen); CRYSTALS None Seen /LPF (None Seen); MUCUS None Seen strn/LPF (None Seen); SQUAMOUS 0-3 Few /LPF (0-3); URINE RBC 0-2 Rare /HPF (0-2); URINE WBC-REFLEX None Seen /HPF (0-5)
--- NOTE | 2020-12-21 11:35 | CON ---
[address] [address] CONSULTATION Name: MARY WEBSTER Room: [address] IN M.R.#: [id number] Admission: 12/18/20 Attend Phys: Geetha Garcia MD Discharge: Date of : 48 Report #: [id number] THIS REPORT FOR: cc: Beba Dickerson,Beba Zepeda,Juvencio Levine MD ~ DATE OF CONSULTATION: 12/19/2020 HISTORY OF PRESENT ILLNESS: This is a 70-year-old female patient who is unable to provide any history. In fact, on my examination, her memory is very poor. Record indicates she lives alone, but there is a number for a caregiver and I tried to talk to her, but that phone number is disconnected, so I can get any history in this patient except as summarized in the patient's records. She was admitted with a hypotensive episode. She was admitted with, found unresponsive at home. In the emergency room, it looks like she had hypotension. She was seen in consultation with cardiology. She was complaining of pain at multiple spots. Record indicates that she has a history of vascular insufficiency. REVIEW OF SYSTEMS: Positive for COPD, lung cancer, partial hysterectomy, hypertension, hyperlipidemia. This is a relevant 14-point review of system I can get. PAST MEDICAL HISTORY: Negative for any stroke the best I can tell. FAMILY HISTORY: Unavailable. SOCIAL HISTORY: She apparently is an old smoker. PHYSICAL EXAMINATION: On my examination today, when I asked her what month it is, she said it is May. When I asked her what hospital she is in, she does not tell me and in fact got angry. She could not tell me who the president is. On my examination, memory is very poor, but her cooperation is poor also. I tried to do the cranial nerve examination. She did not cooperate at all, but I do not see any focal asymmetry the best I can tell. She can move all 4 extremities, but will not cooperate with strength; sensory examination. She does not have any respiratory distress. Cardiac examination is unremarkable. VITAL SIGNS: Blood pressure is 174/74, respirations 17, pulse is 85, temperature is 97.9. LABORATORY DATA: White count is 8.7. GFR is only 34. She did have a CT scan of the head on admission and that does not show any acute abnormality. It does show atrophy. IMPRESSION: Difficult to tell in this patient because she did not cooperate today and I cannot reach anybody to get any history. [place] [address] CONSULTATION Name: MARY WEBSTER Room: [address] IN [facility]#: [id number] Admission: 12/18/20 Attend Phys: Geetha Garcia MD Discharge: Date of : 48 Report #: [id number] hospitalist tomorrow. Her EEG is very slow. If she does have a history of dementia that may be the cause, but we will try to reach some family member, but I do not think we will find any treatable pathology in the brain. Thank you very much for this referral and I will suggest continue to evaluate and manage the systemic problems, which I will defer to hospitalist and other consultants involved. <ELECTRONICALLY SIGNED> By: Juvencio Renee MD 12/21/20 1135 1720 0007Juvencio Renee MD /nt
--- NOTE | 2020-12-21 11:35 | EEG ---
[place] [address] EEG STUDY REPORT Name: MARY WEBSTER Room: [address] IN .R.#: [id number] Admission: 12/18/20 Attend Phys: Geetha Garcia MD Discharge: Date of : 48 Report #: [id number] THIS REPORT FOR: cc: Beba Dickerson,Beba eZpeda,Juvencio Levine MD ~ DATE OF SERVICE: 12/18/2020 This patient is being evaluated for the possibility of seizure. EEG was done by placing the electrode by standard 10-20 system of electrode placement. Both referential and sequential montages were used for recording. Background activity in this patient's EEG is about 6-7 Hz and 30 microvolt. The patient is drowsy and the EEG was even slower after that. Photic stimulation is unremarkable. No active epileptiform activity was noticed. IMPRESSION: This is an abnormal EEG because it is disorganized and poorly formed. That is a nonspecific abnormality which can occur with encephalopathy, effect of psychotropic medication, dementia, etc. Clinical correlation is recommended. <ELECTRONICALLY SIGNED> By: Juvencio Renee MD 12/21/20 1135 1354 1417Partaryn Renee MD /nt
[2020-12-21 12:03] LABS: BE 2.8 mmol/L (-2 to +3); PO2 108.8 mmHg (75.0-100.0)
[2020-12-21 12:04] LABS: pH 7.263 (7.340-7.450)
[2020-12-21 12:05] LABS: PCO2 71.1 mmHg (35.0-45.0)
[2020-12-21 14:49] LABS: BE 0.1 mmol/L (-2 to +3); PO2 101.7 mmHg (75.0-100.0)
[2020-12-21 14:50] LABS: pH 7.287 (7.340-7.450)
[2020-12-21 14:54] LABS: PCO2 59.1 mmHg (35.0-45.0)
--- NOTE | 2020-12-21 16:12 | NUR ---
Pt had a slight decline overnight, pulm following. Therapies to continue to work with Pt. CM to continue to try and reach contacts listed. Pt's goal is to return home. Anticipate dc in a few days.
[2020-12-21 22:15] LABS: BE 3.3 mmol/L (-2 to +3); PO2 120.8 mmHg (75.0-100.0); pH 7.364 (7.340-7.450)
[2020-12-21 22:19] LABS: PCO2 53.1 mmHg (35.0-45.0)
--- NOTE | 2020-12-21 22:41 | CON ---
[address] [address] CONSULTATION Name: MARY WEBSTER Room: [address] IN M.R.#: [id number] Admission: 12/18/20 Attend Phys: Geetha Garcia MD Discharge: Date of : 48 Report #: [id number] THIS REPORT FOR: cc: Beba Dickerson,Jaime Lincoln MD ~ DATE OF CONSULTATION: 12/21/2020 REQUESTING PHYSICIAN: Dr. Garcia. INDICATION FOR CONSULTATION: Acute on chronic hypercarbic respiratory failure. HISTORY OF PRESENT ILLNESS: This is a 70-year-old female, past medical history includes a history of COPD. She has also had lung cancer for which she has had chemotherapy in the past. It is not known to me as to whether the patient uses a CPAP, BiPAP or oxygen at home. At this time, the patient is admitted after being found down. She has had altered mental status as well. The patient has worsened during the night. At the time of my evaluation, the patient was responding only to painful stimuli, was on a BiPAP, oxygenating adequately though, but is significantly acidotic with high pCO2, was switched over the BiPAP to AVAPS mode. The patient is unable to provide a further history or review of systems. I do not see any pulmonary vascular congestion or significant infiltrates on her chest x-ray. There is no pneumothorax. There also is no pulmonary vascular congestion. The patient is unable to provide any review of systems. PAST MEDICAL HISTORY: COPD, I do not have details available; lung cancer, status post chemotherapy; has a left chest port; hypertension; coronary artery disease; hyperlipidemia; partial hysterectomy. There is recent echo which shows a normal left ventricular ejection fraction and mild mitral regurgitation. The tricuspid valve is unremarkable. CURRENT MEDICATIONS: The list in [employer] reviewed. HOME MEDICATIONS: The list in [employer] reviewed. ALLERGIES: REPORTED TO BE ALLERGIC TO PENICILLINS; HOWEVER, IS TOLERATING CEPHALOSPORINS WITHOUT PROBLEMS. SOCIAL HISTORY: There is an extensive history of smoking, unable to quantify exactly at this time. FAMILY HISTORY: [place] [address] CONSULTATION Name: ONI WEBSTERRA Sheikh Room: [address] IN [facility]#: [id number] Admission: 12/18/20 Attend Phys: Geetha Garcia MD Discharge: Date of : 48 Report #: [id number] PHYSICAL EXAMINATION: VITAL SIGNS: She is on BiPAP, AVAPS mode at 40% FiO2, saturating in the high 90s, responding only to painful stimuli, pulse 93, blood pressure 88/57, last O2 saturation 89%, set rate is 20, breathing at 22. She is afebrile with a temperature of 36.8. HEENT: Head is normocephalic and atraumatic. BiPAP is in place. NECK: Does not show raised JVP, asymmetry, mass or lymph nodes. CHEST: Symmetrical expansion on inspection and palpation. On auscultation, breath sounds are markedly decreased with expirations prolonged. HEART: Regular. There is no murmur. ABDOMEN: Soft and nontender. LOWER EXTREMITIES: Show no edema and no calf tenderness. IMAGING: Chest x-ray as above. LABORATORY DATA: Lab work in [facility] reviewed. The patient's CT head report also in [facility] reviewed. ASSESSMENT AND PLAN: 1. Acute on chronic hypercarbic respiratory failure. The patient's decompensation appears to be secondary to bronchospasm and altered mental status. We switched the patient over to AVAPS mode. Hopefully, we will be able to avoid intubating her. We will repeat an arterial blood gas in 2 hours and see where we stand. 2. Chronic obstructive pulmonary disease exacerbation. I agree with Solu-Medrol as ordered by Primary Service, which would be the primary therapy for her condition at this time. Also, agree with current nebulized bronchodilators. I do not see any obvious infiltrates on the chest x-ray; however, I feel it is reasonable to continue to cover with Levaquin. 3. Altered mental status. This does appear to be contributing to her respiratory failure. Neurology service is on the case. We will try to limit sedatives to the extent feasible. 4. History of lung cancer. 5. Evaluation for thromboembolic phenomena. Echo does not show any findings in the right heart. Therefore, overall my suspicion is low, but I will do venous Dopplers. 6. Acute on chronic renal failure. The patient's baseline creatinine is mildly elevated to around 1.3. Creatinine now is 2.1. There is no pulmonary vascular congestion on the chest x-ray; therefore, I cautiously started IV fluids at 50 an hour. Follow response and adjust. The patient is critically ill at this time. [address] [address] CONSULTATION Name: MARY WEBSTER Room: M.214-P ADM IN M.R.#: [id number] Admission: 12/18/20 Attend Phys: Geetha Garcia MD Discharge: Date of : 48 Report #: [id number] Total time spent providing critical care to this patient today exceeds 40 minutes. <ELECTRONICALLY SIGNED> By: Jaime Avalos MD 12/21/20 2241 1342 1447Amichelle Avalos MD /nt
[2020-12-22 00:41] VITALS: BP 102/70
[2020-12-22 04:31] VITALS: BP 108/63
[2020-12-22 05:32] LABS: HEMATOCRIT 29.5 % (37.0-47.0); HEMOGLOBIN 9.7 gm/dL (12.0-15.0); MCH 29.6 pg (26.0-34.0); MCHC 32.7 g/dL (28.0-37.0); MCV 90.4 fL (80.0-100.0); MPV 8.8 fl. (7.2-11.1); NUCLEATED RBCS 0 /100WBC; RBC 3.27 mil/uL (4.20-5.00); RDW-CV 16.3 % (10.5-14.5); WBC 8.7 thou/uL (4.0-11.0)
[2020-12-22 05:35] LABS: PLATELET COUNT* 199 thou/uL (150-400)
[2020-12-22 05:42] LABS: ALBUMIN 2.4 g/dL (3.4-5.0); CALCIUM 8.3 mg/dL (8.5-10.1); CREATININE 1.8 mg/dL (0.6-1.3); MAGNESIUM 2.3 mg/dL (1.8-2.4); POTASSIUM 4.6 mmol/L (3.5-5.1); TOTAL BILIRUBIN 0.2 mg/dL (<0.1-1.0); TOTAL PROTEIN 5.7 g/dL (6.4-8.2)
[2020-12-22 07:17] LABS: ABSOLUTE LYMPHOCYTES 0.1 thou/uL (0.8-5.3); ABSOLUTE MONOCYTES 0.1 thou/uL (0.0-1.2); ABSOLUTE NEUTROPHILS 8.5 thou/uL (1.6-8.1); PLATELET ESTIMATE ADEQUATE
[2020-12-22 08:00] VITALS: BP 108/73
[2020-12-22 10:21] LABS: URINE BILIRUBIN NEGATIVE (Negative); URINE BLOOD 1+ (Negative); URINE CLARITY CLEAR; URINE COLOR YELLOW; URINE GLUCOSE-RANDOM NEGATIVE (Negative); URINE KETONES NEGATIVE (Negative); URINE LEUKOCYTES-REFLEX NEGATIVE (Negative); URINE NITRITE-REFLEX NEGATIVE (Negative); URINE PROTEIN 2+ (Negative); URINE SPECIFIC GRAVITY >= 1.030 (1.005-1.030); URINE UROBILINOGEN 0.2 E.U./dl (0.2-1.0)
[2020-12-22 10:34] LABS: BACTERIA-REFLEX >30 Many /HPF (None Seen); CASTS None Seen /LPF (None Seen); CRYSTALS None Seen /LPF (None Seen); SQUAMOUS 0-3 Few /LPF (0-3); URINE RBC 0-2 Rare /HPF (0-2); URINE WBC-REFLEX 0-5 Rare /HPF (0-5)
[2020-12-22 10:45] LABS: BE 5.1 mmol/L (-2 to +3); PO2 76.5 mmHg (75.0-100.0); pH 7.349 (7.340-7.450)
[2020-12-22 10:48] LABS: PCO2 59.4 mmHg (35.0-45.0)
[2020-12-22 11:55] VITALS: BP 97/64
[2020-12-22 19:59] VITALS: BP 114/80
[2020-12-22 20:00] VITALS: BP 104/85
[2020-12-23] VITALS: BP 152/85
[2020-12-23 04:00] VITALS: BP 147/82
[2020-12-23 06:29] LABS: HEMATOCRIT 30.5 % (37.0-47.0); HEMOGLOBIN 9.8 gm/dL (12.0-15.0); MCH 29.2 pg (26.0-34.0); MCHC 32.1 g/dL (28.0-37.0); MPV 8.6 fl. (7.2-11.1); RBC 3.35 mil/uL (4.20-5.00); RDW-CV 16.5 % (10.5-14.5); WBC 7.7 thou/uL (4.0-11.0)
[2020-12-23 06:32] LABS: CALCIUM 8.5 mg/dL (8.5-10.1); CREATININE 1.7 mg/dL (0.6-1.3); POTASSIUM 4.7 mmol/L (3.5-5.1)
[2020-12-23 08:00] VITALS: BP 126/86
[2020-12-23 12:21] VITALS: BP 154/98
[2020-12-23 16:49] VITALS: BP 126/78
[2020-12-23 20:00] VITALS: BP 152/105
[2020-12-24] VITALS: BP 129/98
--- NOTE | 2020-12-24 04:48 | NUR ---
ASSUMED PT CARE AT APPROX 1930. PT IS AWAKE, ORIENTED TO SELF AND PLACE-IMPULSIVE AND CONFUSED MOST OF THE TIME. PT IS TRACING SR/ST ON THE [place] HELPER. PT IS ON 8L OF O2/HFNC, PT PULLS OFF O2 MOST OF THE TIME AND WOULD DESATURATE EACH TIME. PT IS DIFFICULT TO REDIRECT. PT IS CLOSELY MONITORED.
[2020-12-24 05:02] LABS: HEMATOCRIT 31.2 % (37.0-47.0); HEMOGLOBIN 10.3 gm/dL (12.0-15.0); MCH 29.7 pg (26.0-34.0); MCHC 32.8 g/dL (28.0-37.0); MCV 90.5 fL (80.0-100.0); MPV 8.6 fl. (7.2-11.1); RBC 3.45 mil/uL (4.20-5.00); RDW-CV 16.4 % (10.5-14.5); WBC 7.7 thou/uL (4.0-11.0)
[2020-12-24 05:07] LABS: CALCIUM 8.8 mg/dL (8.5-10.1); CREATININE 1.8 mg/dL (0.6-1.3); POTASSIUM 4.8 mmol/L (3.5-5.1)
[2020-12-24 08:00] VITALS: BP 109/73
[2020-12-24 12:00] VITALS: BP 130/81
--- NOTE | 2020-12-24 15:54 | NUR ---
Anticipate dc in a few days. OT to see. Off sedation, still out of it. CM attempted to reach Pt's contacts with no luck.
[2020-12-24 16:08] VITALS: BP 118/77
--- NOTE | 2020-12-24 18:57 | NUR ---
PT REMAINS DROWSY AND SEDATED THROUGHOUT SHIFT. RESPONDS TO PAINFUL STIMULI. 02 NEEDS INCREASED TO 9 L HIGH FLOW NC SAT MID 90'S. PT CONTINUES TO PULL 02 OFF AND SATS DROP IN THE 70'S. TRACING ST ON THE BUCKLE ASSEMBLER. CAMPBELL TO DEPENDENT DRAINAGE. UNABLE TO CONTACT FAMILY. AM ASSESSMENT CHARTED. MEDICATIONS PER JUL. PT REPOSITIONED EVERY 2 HOURS FOR COMFORT. HOURLY ROUNDING OBSERVED. BED IN LOW POSITION. BED ALARM IN PLACE. FALL PRECAUTIONS IN PLACE. CALL LIGHT WITHIN REACH. WILL CONTINUE PLAN OF CARE.
[2020-12-24 19:50] VITALS: BP 148/91
[2020-12-24 21:11] LABS: BE 4.6 mmol/L (-2 to +3); PO2 116.5 mmHg (75.0-100.0); pH 7.344 (7.340-7.450)
[2020-12-24 21:16] LABS: PCO2 59.3 mmHg (35.0-45.0)
[2020-12-25] VITALS (27 sets, daily range): BP systolic 95–161; BP diastolic 53–110
--- NOTE | 2020-12-25 04:18 | NUR ---
RECIEVED PT FROM TELE, PT WAS CONFUSED ON HIFLOW AT 5LPM AND TOLERATED. PRECEDEX STARTED AND PUT ON BIPAP. PT SOUNDED WET, PULMO INFORMED WITH ORDER MADE AND CARRIED OUT. CONTINUE MONITORING AND TOWARDS GOALS. PRECEDEX AT MAX DOSE. BIPAP AT 80%.
[2020-12-25 05:11] LABS: ABSOLUTE LYMPHOCYTES 0.2 thou/uL (0.8-5.3); ABSOLUTE MONOCYTES 0.1 thou/uL (0.0-1.2); ABSOLUTE NEUTROPHILS 6.8 thou/uL (1.6-8.1); HEMATOCRIT 32.8 % (37.0-47.0); HEMOGLOBIN 10.7 gm/dL (12.0-15.0); LYMPHOCYTES 2.7 %; MCH 29.3 pg (26.0-34.0); MCHC 32.7 g/dL (28.0-37.0); MCV 89.6 fL (80.0-100.0); MONOCYTES 1.6 %; MPV 8.5 fl. (7.2-11.1); NUCLEATED RBCS 0 /100WBC; PLATELET COUNT* 187 thou/uL (150-400); POLYS 95.7 %; RBC 3.66 mil/uL (4.20-5.00); RDW-CV 16.2 % (10.5-14.5); WBC 7.1 thou/uL (4.0-11.0)
[2020-12-25 05:34] LABS: ALBUMIN 2.9 g/dL (3.4-5.0); CALCIUM 8.8 mg/dL (8.5-10.1); CREATININE 1.7 mg/dL (0.6-1.3); MAGNESIUM 2.5 mg/dL (1.8-2.4); POTASSIUM 4.6 mmol/L (3.5-5.1); TOTAL BILIRUBIN 0.4 mg/dL (<0.1-1.0); TOTAL PROTEIN 6.4 g/dL (6.4-8.2)
[2020-12-25 07:30] LABS: BE 8.5 mmol/L (-2 to +3); PO2 72.8 mmHg (75.0-100.0); pH 7.399 (7.340-7.450)
--- NOTE | 2020-12-25 17:08 | NUR ---
Case and plan of care reviewed with MD each weekday during patient's length of stay. Continue plan of care per MD orders for current dx. On Bipap 80% , IV Precedex gtt, very somulent.
[2020-12-26] VITALS (19 sets, daily range): BP systolic 87–137; BP diastolic 53–88
[2020-12-26 01:12] LABS: HEMATOCRIT 35.2 % (37.0-47.0); HEMOGLOBIN 11.2 gm/dL (12.0-15.0); MCH 28.8 pg (26.0-34.0); MCHC 31.8 g/dL (28.0-37.0); MCV 90.4 fL (80.0-100.0); MPV 8.9 fl. (7.2-11.1); NUCLEATED RBCS 0 /100WBC; PLATELET COUNT* 187 thou/uL (150-400); WBC 13.4 thou/uL (4.0-11.0)
[2020-12-26 02:16] LABS: ABSOLUTE LYMPHOCYTES 0.3 thou/uL (0.8-5.3); ABSOLUTE MONOCYTES 0.7 thou/uL (0.0-1.2); ABSOLUTE NEUTROPHILS 12.5 thou/uL (1.6-8.1); PLATELET ESTIMATE ADEQUATE
[2020-12-26 03:34] LABS: CALCIUM 8.1 mg/dL (8.5-10.1); CREATININE 1.7 mg/dL (0.6-1.3); MAGNESIUM 2.1 mg/dL (1.8-2.4)
[2020-12-26 03:43] LABS: POTASSIUM 3.4 mmol/L (3.5-5.1)
--- NOTE | 2020-12-26 08:39 | NUR ---
Case and plan of care reviewed with MD each weekday during patient's length of stay. Continue plan of care per MD orders for current dx. Mentation remains somulent,Pending Myasthenia markers, IV Precedex. Bipap 35 % FiO2 Will Continue to follow for Dc needs
[2020-12-26 08:45] LABS: BE 4.1 mmol/L (-2 to +3); PCO2 39.4 mmHg (35.0-45.0)
[2020-12-26 08:51] LABS: PO2 272.9 mmHg (75.0-100.0)
--- NOTE | 2020-12-26 10:14 | EKG ---
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 Worker: JENELLE : 1950 Requested By: Cintia Parker Order Number: [id number] Reading MD: Molina Bernard Measurements Intervals [place] Rate: 119 P: [place]: QRS: 67 QRSD: 83 T: 191 QT: 390 QTc: 549 Interpretive Statements Atrial flutter Low voltage, extremity leads Nonspecific repol abnormality, diffuse leads Baseline wander in lead(s) II,III,aVR,aVF,V2 Compared to ECG 12/20/2020 04:51:02 Sinus rhythm no longer present Right ventricular hypertrophy no longer present Electronically Signed On 12-26-2020 10:14:21 CDT by Molina Bernard [email or web address] <ELECTRONICALLY SIGNED> By: Molina Bernard MD, [facility] 12/26/20 1014 Molina Bernard MD, [facility] /EPI
--- NOTE | 2020-12-26 10:15 | EKG ---
[place] [address] ELECTROCARDIOGRAM REPORT Name: MARY WEBSTER Room: [address] IN .R.#: [id number] Admission: 12/18/20 Attend Phys: Geetha Garcia, Discharge: Date of : 48 Date of Service: 12/26/20 0037 Report #: [id number] THIS REPORT FOR: //name// [facility] Test Date: 2020-12-26 Test Time: 00:37:12 Pat Name: MARY WEBSTER Department: Room: [address] Gender: F Launchman: JENELLE : 1950 Requested By: Cintia Parker Order Number: [id number] Ynes MD: Molina Bernard Measurements Intervals [place] Rate: 176 P: 127 [place]: 100 QRS: 56 QRSD: 74 T: 120 QT: 297 QTc: 509 Interpretive Statements atrial flutter Low voltage, extremity leads nonspecific st segment changes Compared to ECG 12/26/2020 00:31:41 rate has increased Electronically Signed On 12-26-2020 10:15:50 CDT by Molina Bernard [email or web address] <ELECTRONICALLY SIGNED> By: Molina Bernard MD, [facility] 12/26/20 1015 0037 0037 Molina Bernard MD, [facility] /EPI
--- NOTE | 2020-12-26 10:17 | EKG ---
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 : 1950 Requested By: Cintia Parker Order Number: [id number] Ynes MD: Molina Bernard Measurements Intervals [place] Rate: 122 P: [place]: QRS: 62 QRSD: 86 T: 251 QT: 341 QTc: 486 Interpretive Statements Atrial flutter Low voltage, extremity leads nonspecific st segment changes Compared to ECG 12/26/2020 00:37:12 rate has slowed Electronically Signed On 12-26-2020 10:17:06 CDT by Molina Bernard [email or web address] <ELECTRONICALLY SIGNED> By: Molina Bernard MD, [facility] 12/26/20 1017 0042 0042 Molina Bernard MD, [facility] /EPI
--- NOTE | 2020-12-26 10:18 | EKG ---
[place] [address] ELECTROCARDIOGRAM REPORT Name: ELEANORMARY Kori Room: [address] IN .R.#: [id number] Admission: 12/18/20 Attend Phys: Geetha Garcia, Discharge: Date of : 48 Date of Service: 12/26/20 0137 Report #: [id number] THIS REPORT FOR: //name// [facility] Test Date: 2020-12-26 Test Time: 01:37:47 Pat Name: MARY WEBSTER Department: Room: [address] Gender: F Senior Buyer: JJARAMILLO5 : 1950 Requested By: Sherman Louis Order Number: [id number] Reading MD: Molina Bernard Measurements Intervals [place] Rate: 86 P: 82 PA: 179 QRS: 17 QRSD: 93 T: 86 QT: 371 QTc: 444 Interpretive Statements Sinus rhythm Borderline low voltage, extremity leads Nonspecific T abnormalities, lateral leads Compared to ECG 12/26/2020 00:54:18 T-wave abnormality now present Myocardial infarct finding no longer present Prolonged QT interval no longer present sinus rhythm now noted Electronically Signed On 12-26-2020 10:18:42 CDT by Molina Bernard [email or web address] <ELECTRONICALLY SIGNED> By: Molina Bernard MD, [facility] 12/26/20 1018 6 6 Molina Bernard MD, [facility] /EPI
--- NOTE | 2020-12-26 10:18 | EKG ---
[place] [address] ELECTROCARDIOGRAM REPORT Name: MARY WEBSTER Room: [address] IN .R.#: [id number] Admission: 12/18/20 Attend Phys: Geetha Garcia, Discharge: Date of : 48 Date of Service: 12/26/20 0054 Report #: [id number] THIS REPORT FOR: //name// [facility] Test Date: 2020-12-26 Test Time: 00:54:18 Pat Name: MARY WEBSTER Department: Room: [address] Gender: F Wrapper Sizer: JENELLE : 1950 Requested By: Cintia Parker Order Number: [id number] Reading MD: Molina Bernard Measurements Intervals [place] Rate: 99 P: 78 [place]: 157 QRS: 36 QRSD: 108 T: 95 QT: 405 QTc: 520 Interpretive Statements atrial flutter septal infarct, age indeterminate Lateral leads are also involved Prolonged QT interval Compared to ECG 12/26/2020 00:42:14 Prolonged QT interval now present Myocardial infarct finding still present Electronically Signed On 12-26-2020 10:18:09 CDT by Molina Bernard [email or web address] <ELECTRONICALLY SIGNED> By: Molina Bernard MD, [facility] 12/26/20 1018 0054 0054 Molina Bernard MD, [facility] /EPI
[2020-12-27] VITALS (7 sets, daily range): BP systolic 91–152; BP diastolic 52–89
[2020-12-27 05:18] LABS: ABSOLUTE LYMPHOCYTES 0.1 thou/uL (0.8-5.3); ABSOLUTE MONOCYTES 0.3 thou/uL (0.0-1.2); ABSOLUTE NEUTROPHILS 11.8 thou/uL (1.6-8.1); HEMATOCRIT 28.4 % (37.0-47.0); HEMOGLOBIN 9.3 gm/dL (12.0-15.0); LYMPHOCYTES 1.2 %; MCHC 32.8 g/dL (28.0-37.0); MCV 88.3 fL (80.0-100.0); MONOCYTES 2.5 %; MPV 9.1 fl. (7.2-11.1); NUCLEATED RBCS 0 /100WBC; PLATELET COUNT* 170 thou/uL (150-400); POLYS 96.3 %; RBC 3.22 mil/uL (4.20-5.00); RDW-CV 16.1 % (10.5-14.5); WBC 12.2 thou/uL (4.0-11.0)
[2020-12-27 05:38] LABS: ALBUMIN 2.4 g/dL (3.4-5.0); CREATININE 1.4 mg/dL (0.6-1.3); POTASSIUM 3.9 mmol/L (3.5-5.1); TOTAL BILIRUBIN 0.6 mg/dL (<0.1-1.0); TOTAL PROTEIN 5.4 g/dL (6.4-8.2)
--- NOTE | 2020-12-27 09:13 | NUR ---
PT IS ABLE TO COMMUNICATE HER NEEDS TO STAFF WITH SOME DIFFICULTY; SHE IS CONFUSED AND FORGETFUL. SHE HAS REFUSED SOME ORAL MEDS ON PHYSICAL EDUCATION PROFESSOR. SHE HAS DENIED THE NEED FOR PAIN MEDICATION UP TO 0700 TODAY. CAMPBELL HAS BEEN PATENT UP TO 0700 THIS MORNING. PT REMOVED 2 IVs, PULLED OFF HER POX AND REMOVED HER BIPAP SOON AFTER TRANSFERRING FROM ICU; STAFF TO SIT WERE NOT AVAILABLE. LT CHEST PORT ACCESSED AND PATENT UP TO 0700 TODAY.
[2020-12-27 09:17] LABS: BE 8.2 mmol/L (-2 to +3); PCO2 41.9 mmHg (35.0-45.0); pH 7.502 (7.340-7.450)
[2020-12-27 09:20] LABS: PO2 53.3 mmHg (75.0-100.0)
--- NOTE | 2020-12-27 11:54 | 2DMMODE ---
[facility] [place] [address] 2 D/M-MODE ECHOCARDIOGRAM Name: MARY WEBSTER Room: [address] IN [facility]#: [id number] Admission: 12/18/20 Attend Phys: Geetha Garcia, Discharge: Date of : 48 Date of Service: 12/27/20 1153 Report #: [id number] THIS REPORT FOR: cc: Beba Dickerson,Sherman Terrazas MD [facility] ~ APPROVED REPORT Study performed: 12/27/2020 09:58:36 EXAM: Limited 2D Echocardiogram Patient Location: In-Patient Room #: [facility] Status: routine BSA: 1.59 HR: 115 bpm BP: 109/75 mmHg Other Information Study Quality: Good Indications Follow up EF Left Ventricle The left ventricle is normal size. There is a moderate sized region of hypokinesis involving the inferolateral wall. There is normal left ventricular wall thickness. The left ventricular systolic function is normal. LVEF is 50-55%. Right Ventricle The right ventricle is normal size. The right ventricular systolic function is normal. Atria The left atrium size is normal. The right atrium size is normal. Aortic Valve Mild aortic valve sclerosis. Mitral Valve There is mitral annular calcification. Tricuspid Valve [address] [address] 2 D/M-MODE ECHOCARDIOGRAM Name: MARY GRACESERGMARY Room: [address] IN M.R.#: [id number] Admission: 12/18/20 Attend Phys: Geetha Garcia, Discharge: Date of : 48 Date of Service: 12/27/20 1153 Report #: [id number] The tricuspid valve is normal in structure. Great Vessels The aortic root is normal in size. IVC is normal in size and collapses >50% with inspiration. Pericardium There is no pericardial effusion. <Conclusion> The left ventricle is normal size. There is normal left ventricular wall thickness. The left ventricular systolic function is normal. LVEF is 50-55%. There is a moderate sized region of hypokinesis involving the inferolateral wall. Mild aortic valve sclerosis. <ELECTRONICALLY SIGNED> By: Sherman Louis MD, [facility] 12/27/20 1153 1153 52 Sherman Louis MD, [facility] /INF
--- NOTE | 2020-12-27 14:50 | NUR ---
Pt back and forth on HFNC and bipap. CM attempted to contact Pt's contacts, still with no luck.
--- NOTE | 2020-12-27 18:23 | NUR ---
RECEIVED REPORT AROUND 0715. ASSUMED CARE. VS AND ASSESSMENT CHARTED. IV INTACT LEFT CHEST PORT. IV FLUIDS SLOWED DOWN TO 50 ML/HR PER DR GARCIA. MEDS GIVEN PER JUL. PILLS CRUSHED AND PUT IN FOOD. HOURLY ROUNDING PERFORMED. Q2 TURNS. PT NOT EATING VERY MUCH. REFUSED DINNER. ONLY HAD A FEW BITES OF BREAKFAST. BIPAP NEEDED. NC 2L NOW. HAD BOWEL MOVEMENT TODAY. CAMPBELL INTACT. CALL LIGHT WITH IN REACH. WILL CONTINUE TO MONITOR.
[2020-12-28] VITALS: BP 100/64
[2020-12-28 04:18] VITALS: BP 113/76
[2020-12-28 04:31] LABS: ABSOLUTE LYMPHOCYTES 0.3 thou/uL (0.8-5.3); ABSOLUTE MONOCYTES 0.5 thou/uL (0.0-1.2); BASOPHILS 0.1 %; HEMATOCRIT 29.1 % (37.0-47.0); HEMOGLOBIN 9.4 gm/dL (12.0-15.0); LYMPHOCYTES 2.1 %; MCH 28.4 pg (26.0-34.0); MCHC 32.2 g/dL (28.0-37.0); MCV 88.2 fL (80.0-100.0); MONOCYTES 3.4 %; MPV 9.2 fl. (7.2-11.1); NUCLEATED RBCS 0 /100WBC; PLATELET COUNT* 222 thou/uL (150-400); POLYS 94.4 %; RDW-CV 16.8 % (10.5-14.5); WBC 14.8 thou/uL (4.0-11.0)
[2020-12-28 04:51] LABS: CALCIUM 8.1 mg/dL (8.5-10.1); CREATININE 1.4 mg/dL (0.6-1.3); MAGNESIUM 2.1 mg/dL (1.8-2.4); POTASSIUM 3.5 mmol/L (3.5-5.1)
--- NOTE | 2020-12-28 05:31 | NUR ---
PT AO X2 WITH SPEECH THAT IS HARD TO UNDERSTAND AT TIMES. 2L NC WITH USE OF BIPAP OVER NIGHT, SHE DID NOT TOLORATE THIS WELL, TAKING MASK OF SEVERAL TIMES THROUGHOUT THE NIGHT. PORT TO LT CHEST FLUSHES AND DRAWS BLOOD WITHOUT PROBLEMS. PT Q 2 TURN WITH REDNESS TO COCCYX. MEDS CRUSHED IN PUDDING TAKEN WITH OUT PROBLEM, ORAL CARE GIVEN. CAMPBELL TO DD WITH YELLOW URINE IN ADEQUATE AMOUNTS. IVF PER EMAR. PT USES CALL LIGHT APPROPRIATELY. CALL LIGHT IN REACH AND BED ALARM ON FOR SAFETY
[2020-12-28 08:20] VITALS: BP 146/90
[2020-12-28 12:00] VITALS: BP 116/72
--- NOTE | 2020-12-28 14:51 | NUR ---
Pt remains on bipap, moving slowly. Still unable to reach Pt's contacts
[2020-12-28 16:00] VITALS: BP 129/74
--- NOTE | 2020-12-28 18:11 | NUR ---
PT RHYSLTY RESTING IN BED, WATCHING TV- PROFESSOR OF FINE ART IN PLACE ORDERED, TRACING SR/ST- LEFT CHEST PORT NOTED C/D/I WITH IVF INFUSSING PER ORDERS- IV ABT GIVEN THIS SHIFT ORDERED- SIT UP ASSIST REQUIRED WITH MEALS, FAIR PO INTAKE NOTED; BS MONIOTRED ORDERED WITH SSI PRESCRIBED- O2 CONTINUED AT 2L WITH STABLE O2 SAT AT 97%-COURSE LUNG SOUNDS NOTED WITH RHONCHI, OCCASSIONAL NON-PRODUCITVE COUGH NOTED- THRUSH NOTED TO TONGUE AND BACK OF THROAT, NOTIFIED WITH ORDERS OBTAINED AND GIVEN OF DIFLUCAN- Q [address] INDICATED- PRN TYLENOL X1 THIS SHIFT R/T C/O LEG PAIN, PT REPORTS MEDICATION TO BE EFFECTIVE- CALL LIGHT AND PERSONAL BELONGINGS WITH IN REACH- HOURLY ROUNDS IN PLACE R/T SAFETY/NEEDS- ALL NEEDS MET AT THIS TIME
[2020-12-28 20:30] VITALS: BP 114/86
[2020-12-29 00:12] VITALS: BP 110/76
--- NOTE | 2020-12-29 01:17 | NUR ---
0030-PT PULLED OFF BIPAP MASK X3. NC PLACED ON PT. O2 SATS 93% ON 2LPM.
[2020-12-29 02:21] LABS: ABSOLUTE LYMPHOCYTES 0.2 thou/uL (0.8-5.3); ABSOLUTE MONOCYTES 0.7 thou/uL (0.0-1.2); ABSOLUTE NEUTROPHILS 20.9 thou/uL (1.6-8.1); HEMATOCRIT 27.5 % (37.0-47.0); HEMOGLOBIN 8.7 gm/dL (12.0-15.0); LYMPHOCYTES 1.1 %; MCH 28.3 pg (26.0-34.0); MCHC 31.8 g/dL (28.0-37.0); MCV 88.9 fL (80.0-100.0); MONOCYTES 3.1 %; MPV 8.7 fl. (7.2-11.1); NUCLEATED RBCS 0 /100WBC; PLATELET COUNT* 208 thou/uL (150-400); POLYS 95.8 %; RBC 3.09 mil/uL (4.20-5.00); RDW-CV 16.9 % (10.5-14.5); WBC 21.8 thou/uL (4.0-11.0)
[2020-12-29 02:36] LABS: CALCIUM 7.9 mg/dL (8.5-10.1); CREATININE 1.4 mg/dL (0.6-1.3); MAGNESIUM 1.8 mg/dL (1.8-2.4); POTASSIUM 3.6 mmol/L (3.5-5.1)
--- NOTE | 2020-12-29 04:40 | NUR ---
PT CONFUSED, NOT COHERENT, Q2 TURN, INCONTINENT OF BOWEL. KEEPS WANTING BREATHING TREATMENTS ALL SHIFT. RECEIVED ALL MEDS SCHEDULED. CANNOT REALLY ANSWER QUESTIONS UNLESS YES OR NO. SHE DID NOT SLEEP MUCH TONIGHT.
[2020-12-29 08:00] VITALS: BP 105/63
[2020-12-29 15:01] VITALS: BP 107/73
--- NOTE | 2020-12-29 17:51 | NUR ---
PATIENT RESTING IN BED. DECREASE APPETITE. PORT TO LEFT CHEST, SALINE LOCKED, PATENT. CAMPBELL SECURELY INPLACE TO DEPENDENT DRAINAGE. BLOOD SUGARS MONITORED THROUGH SHIFT. INSULIN GIVEN NEEDED. BRUISING SCATTERED THROUGHOUT BODY. ALERT AND ORIENTED X2. SINUS RYTHM ON MONITOR. BED IN LOW/LOCKED POSITION. BED ALARM ON. CALL LIGTH WITHIN REACH. NO QUESTIONS OR CONCERNS VOICED.
[2020-12-29 19:20] VITALS: BP 134/65
--- NOTE | 2020-12-30 05:10 | NUR ---
PATIENT COMBATIVE, IMPULSIVE AND UNCOOPERATIVE AT BEGINNING OF SHIFT. HALDOL IV GIVEN. PT REFUSED HS MEDICATIONS. PT WITH CAMPBELL CATHETER WITH DARK YELLOW URINE. PT HAS PAC IN LT UPPER CHEST. PT ST ON CRISIS MENTAL HEALTH THERAPIST. PT ON O2 @ 2LITER PER NASAL CANNULA AND BIPAP AT NIGHT. PT REMOVED HER BIPAP SEVERAL TIMES. FREQUENTLY USED ITEMS AND CALL LIGHT WITHIN REACH. SIDERAILS UPX3 AND BED ALARM ON. FREQUENT OBSERVATIONS MADE. WILL CONTINUE TO MONITOR.
[2020-12-30 06:02] LABS: ABSOLUTE LYMPHOCYTES 0.3 thou/uL (0.8-5.3); ABSOLUTE MONOCYTES 0.4 thou/uL (0.0-1.2); ABSOLUTE NEUTROPHILS 27.3 thou/uL (1.6-8.1); BASOPHILS 0.1 %; HEMATOCRIT 25.8 % (37.0-47.0); HEMOGLOBIN 8.2 gm/dL (12.0-15.0); LYMPHOCYTES 1.1 %; MCH 28.4 pg (26.0-34.0); MCHC 31.9 g/dL (28.0-37.0); MONOCYTES 1.4 %; NUCLEATED RBCS 0 /100WBC; PLATELET COUNT* 170 thou/uL (150-400); POLYS 97.4 %; RDW-CV 16.5 % (10.5-14.5)
[2020-12-30 06:15] LABS: CALCIUM 8.2 mg/dL (8.5-10.1); CREATININE 1.4 mg/dL (0.6-1.3); POTASSIUM 3.7 mmol/L (3.5-5.1)
[2020-12-30 08:00] VITALS: BP 119/84
[2020-12-30 12:25] LABS: BE 2.4 mmol/L (-2 to +3); PCO2 41.2 mmHg (35.0-45.0); pH 7.433 (7.340-7.450)
[2020-12-30 12:27] LABS: PO2 176.6 mmHg (75.0-100.0)
[2020-12-30 12:30] VITALS: BP 118/64
[2020-12-30 16:00] VITALS: BP 129/77
--- NOTE | 2020-12-30 18:33 | NUR ---
PATIENT RESTING IN BED. DECREASE APPETITE. CAMPBELL SECURELY INPLACE TO DEPENDENT DRAINAGE. PORT TO LEFT CHEST, PATENT, SALINE LOCKED. 3L O2, NASAL CANNULA, SAT 3%. BIPAP AT NIGHT. BLOOD CULTURES GRAM+ WITH RODS. ABG 176.6, DOCTOR NOTIFIED, NO NEW ORDERS. MILD SKIN BREAKDOWN TO COCCYX, OPTIFOAM TO SITE. SMALL SORE TO BRIDGE OF NOSE, OPEN TO AIR. PICTURES TAKEN OF BOTH SITES AND PLACED IN CHART. BLOOD SUGARS MONITORED. INSULIN GIVEN NEEDED. ALERT AND ORIENTED X2. BED IN LOW/LOCKED POSITION. BED ALARM ON. CALL LIGHT WITHIN REACH. NO QUESTIONS OR CONCERNS VOICED.
[2020-12-31] VITALS: BP 111/65
[2020-12-31 04:00] VITALS: BP 96/66
[2020-12-31 04:01] LABS: HEMATOCRIT 22.5 % (37.0-47.0); HEMOGLOBIN 7.2 gm/dL (12.0-15.0); MCH 28.6 pg (26.0-34.0); MCHC 32.1 g/dL (28.0-37.0); MCV 89.1 fL (80.0-100.0); MPV 9.1 fl. (7.2-11.1); NUCLEATED RBCS 0 /100WBC; PLATELET COUNT* 161 thou/uL (150-400); RBC 2.53 mil/uL (4.20-5.00); RDW-CV 16.7 % (10.5-14.5); WBC 24.6 thou/uL (4.0-11.0)
[2020-12-31 04:12] LABS: CALCIUM 8.1 mg/dL (8.5-10.1); CREATININE 1.7 mg/dL (0.6-1.3); POTASSIUM 3.6 mmol/L (3.5-5.1)
[2020-12-31 05:36] LABS: ABSOLUTE LYMPHOCYTES 0.5 thou/uL (0.8-5.3); ABSOLUTE MONOCYTES 0.7 thou/uL (0.0-1.2); ABSOLUTE NEUTROPHILS 23.4 thou/uL (1.6-8.1); HYPOCHROMASIA 1+; PLATELET ESTIMATE ADEQUATE; TOXIC GRANULATION 1+
[2020-12-31 08:00] VITALS: BP 129/77
[2020-12-31 12:00] VITALS: BP 84/54
--- NOTE | 2020-12-31 13:06 | NUR ---
Pt becoming more alert and oriented. Pt will likely need SNF at dc, therapies to eval. Surgery following, plan to advance diet. CM to continue to attempt to reach Pt's contacts.
--- NOTE | 2020-12-31 13:43 | NUR ---
1230: BLOOD PRESSURE 74/50; PULSE 100. 500ML BOLUS INFUSING. PATIENT STATES THAT SHE IS HAVING A HARD TIME BREATHING. RESPIRTORY THERAPY PAGED. DR. TAYLOR INFORMED. NO NEW ORDERS. WILL CONTINUE TO FIDEL
--- NOTE | 2020-12-31 13:46 | NUR ---
1250: RESPIRATORY THERAPY AT BEDSIDE. THERAPY TREATMENT GIVEN EARLY. PATIENT BEING PLACED ON BIPAP. BLOOD [id number]; PULSE 100. DR. TAYLOR INFORMED. NO NEW ORDERS. WILL CONTINUE TO MONITOR.
--- NOTE | 2020-12-31 13:47 | NUR ---
1340: 500ML BOLUS INFUSED BLOOD PRESSURE 93/49; PULSE 97. DR. TAYLOR INFORMED. NO NEW ORDERS. WILL CONTINUE TO MONITOR.
--- NOTE | 2020-12-31 14:40 | NUR ---
NEW ORDERS: NORMAL SALINE 500ML BOLUS. STAT LABS: CBC, LACTIC, CMP. WILL CONTINUE TO MONITOR.
[2020-12-31 14:57] LABS: ABSOLUTE BASOPHILS 0.3 thou/uL (0.0-0.2); ABSOLUTE LYMPHOCYTES 0.2 thou/uL (0.8-5.3); ABSOLUTE MONOCYTES 0.9 thou/uL (0.0-1.2); ABSOLUTE NEUTROPHILS 27.8 thou/uL (1.6-8.1); EOSINOPHILS 0.1 %; HEMATOCRIT 21.7 % (37.0-47.0); LYMPHOCYTES 0.8 %; MCH 28.6 pg (26.0-34.0); MCHC 31.4 g/dL (28.0-37.0); MONOCYTES 3.1 %; MPV 9.1 fl. (7.2-11.1); NUCLEATED RBCS 0 /100WBC; PLATELET COUNT* 176 thou/uL (150-400); RBC 2.39 mil/uL (4.20-5.00); RDW-CV 16.8 % (10.5-14.5); WBC 29.3 thou/uL (4.0-11.0)
[2020-12-31 15:05] LABS: HEMOGLOBIN 6.8 gm/dL (12.0-15.0)
[2020-12-31 15:32] LABS: CALCIUM 7.7 mg/dL (8.5-10.1); CREATININE 1.8 mg/dL (0.6-1.3); POTASSIUM 3.5 mmol/L (3.5-5.1)
[2020-12-31 16:00] VITALS: BP 138/81
--- NOTE | 2020-12-31 16:46 | NUR ---
1605: THIS RN INTO PATIENT'S ROOM FOR REASSESSMENT. PATIENT WITH INCREASE LABOR BREATHING, HEAD BOBBING, USE OF ACCESSORY MUSCLES AND NASAL FLARING. LUNG SOUNDS WET, CRACKLES BILATERALLY. 1615: AT THIS TIME CHARGE NURSE, MIRIAM AND REPIRATORY THERAPIST AT BEDSIDE TO ASSESS PATIENT. RAPID RESPONSE CALLED AT THIS TIME. WILL CONTINUE TO MONITOR.
--- NOTE | 2020-12-31 16:50 | NUR ---
1618: LASIX ORDERED AT THIS TIME. 1620: LASIX BEING ADMINISTERED AT THIS TIME. CT OF ABDOMEN AND PELVIS ORDERED. WILL CONITNUE TO MONITOR.
[2020-12-31 18:03] LABS: BE 1.4 mmol/L (-2 to +3); PCO2 45.4 mmHg (35.0-45.0); PO2 107.6 mmHg (75.0-100.0); pH 7.387 (7.340-7.450)
--- NOTE | 2020-12-31 18:18 | NUR ---
PATIENT RESTING IN BED WITH BIPAP ON. TOLERATING WITHOUT DIFFICULTIES. PORT TO LEFT CHEST, PATENT. TWO IV BOLUS OF NORMAL SALINE OF 500ML GIVEN. TYPE AND SCREEN PENDING. CAMPBELL SECURELY INPLACE TO DEPENDENT DRAINAGE. BLOOD SUGARS MONITORED. INSULIN GIVEN NEEDED. SKIN TEAR TO LEFT LOWER ARM, BANDAID TO SITE. SKIN BREAKDOWN TO RIGHT BUTTOCK, DRESSING C/D/I. BED IN LOW/LOCKED POSITION. CALL LIGHT WITHIN REACH.
[2020-12-31 22:30] VITALS: BP 186/112
--- NOTE | 2020-12-31 23:33 | NUR ---
PATIENT FOUND WITH O2 OFF AND SATS IN THE 70'S. CANNULA REPLACED AND TURNED FROM 2L TO 4L. VITALS 186/112; HR 51; R 28; TEMP 97.8. PT'S ORIENTATION IS AT HER BASELINE. PT PLACED ON HER BIPAP AND SATS WNL. RAPID RESPONSE CALLED AND EKG DONE. LAST SET OF VITALS AT 95/57; HR 75; RESP 20. DR MORAES NOTIFIED AND SAID TO JUST WATCH HER AND NOTIFY HER OF ANY CHANGES. WILL CONTINUE TO MONITOR.
[2021-01-01] VITALS (8 sets, daily range): BP systolic 74–127; BP diastolic 48–72
--- NOTE | 2021-01-01 04:43 | NUR ---
PATIENT RECEIVED ONE UNIT OF PRBC AND TOLERATED WELL. RESIDENTIAL BUILDER CALLED EARLIER ON PT BUT HER VITALS AND SATS HAVE BEEN WITHIN RANGE SINCE THEN. PT REPOSITIONED Q2H PER PROTOCAL. PT WITH CAMPBELL TO DEPENDENT DRAIN WITH DARK YELLOW URINE. PT WITH WOUNDS ON COCCYX/BUTTOCKS AREA; DSG INTACT. PT ON O2 @ 3 LITERS PER NASAL CANNULA AND ON BIPAP AT NIGHT. PT DID REFUSE TO WEAR HER BIPAP AROUND MIDNIGHT BUT DID KEEP HER O2 ON. PT HAS PAC IN LT UPPER CHEST. ABLE TO FLUSH/DRAW BLOOD WITH NO RESISTANCE. FREQUENTLY USED ITEMS AND CALL LIGHT WITHIN REACH. SIDERAILS UPX3 AND BED ALARM ON. WILL CONTINUE TO MONITOR.
[2021-01-01 06:18] LABS: ABSOLUTE BASOPHILS 0.1 thou/uL (0.0-0.2); ABSOLUTE LYMPHOCYTES 0.2 thou/uL (0.8-5.3); ABSOLUTE MONOCYTES 0.4 thou/uL (0.0-1.2); ABSOLUTE NEUTROPHILS 25.7 thou/uL (1.6-8.1); BASOPHILS 0.3 %; HEMATOCRIT 26.6 % (37.0-47.0); HEMOGLOBIN 8.7 gm/dL (12.0-15.0); LYMPHOCYTES 0.8 %; MCH 29.4 pg (26.0-34.0); MCHC 32.5 g/dL (28.0-37.0); MCV 90.4 fL (80.0-100.0); MONOCYTES 1.7 %; MPV 9.4 fl. (7.2-11.1); NUCLEATED RBCS 0 /100WBC; PLATELET COUNT* 155 thou/uL (150-400); POLYS 97.2 %; RBC 2.95 mil/uL (4.20-5.00); RDW-CV 15.8 % (10.5-14.5); WBC 26.5 thou/uL (4.0-11.0)
[2021-01-01 06:29] LABS: ALBUMIN 2.4 g/dL (3.4-5.0); CALCIUM 7.6 mg/dL (8.5-10.1); PHOSPHORUS* 3.6 mg/dL (2.5-4.9); POTASSIUM 3.1 mmol/L (3.5-5.1); TOTAL BILIRUBIN 1.1 mg/dL (<0.1-1.0); TOTAL PROTEIN 5.2 g/dL (6.4-8.2)
--- NOTE | 2021-01-01 13:39 | NUR ---
Anticipate dc in a few days. PT/OT to see. Pt bp down yesterday. Plan SNF at dc.
--- NOTE | 2021-01-01 17:43 | NUR ---
PATIENT HAS BEEN ALERT AND ORIENTED A&OX2-3 THIS SHIFT, HAS BEEN PLEASANT AND COOPERATIVE WITH CARES. POTASSIUM REPLACED THIS SHIFT; BMP SCHEDULED FOR IN THE A.M. URINARY CATHETER IN PLACE TO DD, YELLOW URINE IN COLLECTION BAG. MEDICATIONS AND FLUIDS ADMINISTERED ORDERED. BED ALARM ON FOR PATIENT SAFETY. CALL LIGHT AND FREQUENTLY USED ITEMS WITHIN REACH.
[2021-01-02 04:00] VITALS: BP 135/56
--- NOTE | 2021-01-02 06:45 | NUR ---
Oriented x 1, confused but she does answer questions appropriately. She had a CT last evening and it showed opacities in her lungs. Dr Alexander did give orders to do rapid covid test which was negative. He did return call and say to move her to negative pressure room and place in isolation and do PCR Covid test. She does have rhonchi that is autible. When she removes O2 her sat drops to the 70's. She has very cold hands and nail zambian on, pulse ox place on her toe and is doing much better. She refused bipap. Vitals stable sinus rhthym on the monitor. She took her pills crushed in pudding. She has slept well.
[2021-01-02 06:59] LABS: CALCIUM 7.5 mg/dL (8.5-10.1); CREATININE 2.6 mg/dL (0.6-1.3); POTASSIUM 5.6 mmol/L (3.5-5.1)
[2021-01-02 10:20] VITALS: BP 101/48
--- NOTE | 2021-01-02 11:13 | EKG ---
[place] [address] ELECTROCARDIOGRAM REPORT Name: ELEANORMARY Kori Room: [address] [place] .R.#: [id number] Admission: 12/18/20 Attend Phys: Geetha Garcia, Discharge: Date of : 48 Date of Service: 12/31/20 2256 Report #: [id number] THIS REPORT FOR: //name// [facility] Test Date: 2020-12-31 Test Time: 22:56:41 Pat Name: MARY WEBSTER Department: Room: [facility] Gender: F Medical Assembly: : 1950 Requested By: Geetha Garcia Order Number: [id number] Reading MD: Leopoldo Rojo Measurements Intervals Vinson Rate: 101 P: 260 ID: [id number] QRS: 32 QRSD: 91 T: 70 QT: 491 QTc: 637 Interpretive Statements Sinus rhythm Borderline low voltage, extremity leads Mid anterior precordial ST segment impression; ischemia must be considered Prolonged QT interval Compared to ECG 12/26/2020 01:37:[address] segment impression is noted; consider ischemia Prolonged QT interval now present Electronically Signed On 01-02-2021 11:13:17 CDT by Leopoldo Rojo [email or web address] <ELECTRONICALLY SIGNED> By: Leopoldo Rojo MD, [facility] 01/02/21 1113 2256 2256 Leopoldo Rojo MD, [facility] /EPI
[2021-01-02 11:16] VITALS: BP 110/64
--- NOTE | 2021-01-02 13:08 | NUR ---
PUI. Await covid results. Continue to plan SNF at [place]
[2021-01-02 16:28] VITALS: BP 98/45
--- NOTE | 2021-01-02 18:20 | NUR ---
PATIENT HAS BEEN EXTREMELY FATIGUED AND HAS SLEPT MOST OF THE SHIFT. PATIENT HAS BEEN DIFFICULT TO WAKE AT TIMES HOWEVER VITAL SIGNS AND OXYGEN SATURATIONS HAVE REMAINED STABLE. PATIENT DOES WAKE UP TO VOICE AND TOUCH, AND DRAWS HER FIST BACK AT TIMES WHEN STAFF DOES WAKE HER. PATIENT HAS REFUSED TO EAT MEALS TODAY THEREFORE INSULIN ONLY ADMINISTERD AT LUNCH THIS SHIFT. ISOLATION PRECAUTIONS MAINTAINED. MEDICATIONS AND FLUIDS ADMINISTERED ORDERED. URINARY CATHETER IN PLACE TO DD, YELLOW URINE IN COLLECION BAG. CALL LIGHT AND FREQUENTLY USED ITEMS WITHIN REACH.
[2021-01-02 19:09] LABS: CALCIUM 7.2 mg/dL (8.5-10.1); CREATININE 2.7 mg/dL (0.6-1.3); MAGNESIUM 1.8 mg/dL (1.8-2.4); POTASSIUM 5.1 mmol/L (3.5-5.1)
[2021-01-02 20:40] VITALS: BP 89/57
[2021-01-02 20:45] LABS: BE -5.4 mmol/L (-2 to +3); PCO2 44.8 mmHg (35.0-45.0); PO2 100.9 mmHg (75.0-100.0)
[2021-01-02 20:51] LABS: pH 7.287 (7.340-7.450)
[2021-01-02 21:51] LABS: URINE BILIRUBIN NEGATIVE (Negative); URINE BLOOD 3+ (Negative); URINE COLOR YELLOW; URINE GLUCOSE-RANDOM NEGATIVE (Negative); URINE KETONES TRACE (Negative); URINE LEUKOCYTES-REFLEX NEGATIVE (Negative); URINE NITRITE-REFLEX NEGATIVE (Negative); URINE PROTEIN 2+ (Negative); URINE SPECIFIC GRAVITY 1.025 (1.005-1.030); URINE UROBILINOGEN 0.2 E.U./dl (0.2-1.0)
[2021-01-02 21:54] LABS: URINE CLARITY HAZY
[2021-01-02 21:57] LABS: HYALINE CASTS >10 Many /LPF (None Seen); MUCUS None Seen strn/LPF (None Seen); SQUAMOUS NONE SEEN /LPF (0-3)
[2021-01-02 21:58] LABS: BACTERIA-REFLEX 1-9 Few /HPF (None Seen); CRYSTALS None Seen /LPF (None Seen); URINE RBC >20 Many /HPF (0-2); URINE WBC-REFLEX 0-5 Rare /HPF (0-5)
[2021-01-02 22:21] LABS: HEMATOCRIT 24.4 % (37.0-47.0); HEMOGLOBIN 7.7 gm/dL (12.0-15.0)
[2021-01-03] VITALS (38 sets, daily range): BP systolic 60–147; BP diastolic 33–77
[2021-01-03 04:13] LABS: ABSOLUTE BASOPHILS 0.1 thou/uL (0.0-0.2); ABSOLUTE LYMPHOCYTES 0.2 thou/uL (0.8-5.3); ABSOLUTE MONOCYTES 0.5 thou/uL (0.0-1.2); ABSOLUTE NEUTROPHILS 28.1 thou/uL (1.6-8.1); BASOPHILS 0.2 %; HEMATOCRIT 24.2 % (37.0-47.0); HEMOGLOBIN 7.6 gm/dL (12.0-15.0); LYMPHOCYTES 0.6 %; MCH 29.2 pg (26.0-34.0); MCHC 31.5 g/dL (28.0-37.0); MCV 92.8 fL (80.0-100.0); MONOCYTES 1.6 %; MPV 9.1 fl. (7.2-11.1); NUCLEATED RBCS 0 /100WBC; PLATELET COUNT* 143 thou/uL (150-400); POLYS 97.6 %; RDW-CV 16.3 % (10.5-14.5); WBC 28.8 thou/uL (4.0-11.0)
[2021-01-03 04:32] LABS: ALBUMIN 2.4 g/dL (3.4-5.0); CALCIUM 7.9 mg/dL (8.5-10.1); MAGNESIUM 2.5 mg/dL (1.8-2.4); POTASSIUM 5.6 mmol/L (3.5-5.1); TOTAL BILIRUBIN 0.7 mg/dL (<0.1-1.0); TOTAL PROTEIN 5.1 g/dL (6.4-8.2)
--- NOTE | 2021-01-03 08:30 | NUR ---
Patient was lethargic all of this shift. Vitals were stable and O2 sats were WNL with bipap in place. Dr Avalos ordered ABGs at start of shift and critical results were called to him and orders recieved. She was turned every 2 hours. Urine output per mejia was low. This am he was notified about urine output and labs. He did order albumin which was given. Patient still very lethargic.
[2021-01-03 10:59] LABS: BE -7.4 mmol/L (-2 to +3); PCO2 42.5 mmHg (35.0-45.0)
[2021-01-03 11:02] LABS: PO2 131.8 mmHg (75.0-100.0); pH 7.268 (7.340-7.450)
--- NOTE | 2021-01-03 14:56 | NUR ---
Pt transferred to ICU. Out of iso.
[2021-01-03 18:36] LABS: BE -4.2 mmol/L (-2 to +3); PCO2 33.2 mmHg (35.0-45.0)
[2021-01-03 18:44] LABS: PO2 135.7 mmHg (75.0-100.0)
--- NOTE | 2021-01-03 19:30 | NUR ---
PT TAKEN TO ICU TODAY AT 1400. NEPHOR[address] DR TO INTUBATE THE PATIENT. VSS VERY LOW. PT IS VERY UNRESPONSIVE. REPORT GIVEN TO ARIK PINEDA IN ICU. WILL VCONTINUE TO CHELLE Brady.
[2021-01-03 21:06] LABS: COMPLEMENT-C4 17 mg/dL (12-38)
[2021-01-04] VITALS (128 sets, daily range): BP systolic 75–157; BP diastolic 38–104
[2021-01-04 03:06] LABS: HEPATITIS B SURFACE AG Negative (Negative)
[2021-01-04 08:18] LABS: BE -3.4 mmol/L (-2 to +3); PCO2 39.8 mmHg (35.0-45.0); PO2 93.8 mmHg (75.0-100.0); pH 7.356 (7.340-7.450)
[2021-01-04 08:30] LABS: MCH 29.8 pg (26.0-34.0); MCHC 32.9 g/dL (28.0-37.0); MCV 90.6 fL (80.0-100.0); MPV 9.2 fl. (7.2-11.1); NUCLEATED RBCS 0 /100WBC; PLATELET COUNT* 132 thou/uL (150-400); RBC 2.08 mil/uL (4.20-5.00); RDW-CV 16.1 % (10.5-14.5); WBC 24.6 thou/uL (4.0-11.0)
[2021-01-04 08:40] LABS: ALBUMIN 2.4 g/dL (3.4-5.0); CALCIUM 7.2 mg/dL (8.5-10.1); CREATININE 3.3 mg/dL (0.6-1.3); MAGNESIUM 2.1 mg/dL (1.8-2.4); PHOSPHORUS* 3.8 mg/dL (2.5-4.9); POTASSIUM 4.1 mmol/L (3.5-5.1); TOTAL BILIRUBIN 0.7 mg/dL (<0.1-1.0); TOTAL PROTEIN 4.5 g/dL (6.4-8.2)
[2021-01-04 08:51] LABS: HEMATOCRIT 18.9 % (37.0-47.0); HEMOGLOBIN 6.2 gm/dL (12.0-15.0)
[2021-01-04 09:24] LABS: ABSOLUTE NEUTROPHILS 23.6 thou/uL (1.6-8.1); PLATELET ESTIMATE ADEQUATE
--- NOTE | 2021-01-04 12:04 | NUR ---
ICU ROUNDS: PT TRANSFER TO ICU FROM TELE YESTERDAY. PT ON IV ABX AND STEROIDS. LEVO GTT AND AMIO GTT. VENT AT 100 %
[2021-01-04 16:03] LABS: ABSOLUTE BASOPHILS 0.1 thou/uL (0.0-0.2); ABSOLUTE LYMPHOCYTES 0.2 thou/uL (0.8-5.3); ABSOLUTE MONOCYTES 0.3 thou/uL (0.0-1.2); ABSOLUTE NEUTROPHILS 21.4 thou/uL (1.6-8.1); BASOPHILS 0.3 %; HEMATOCRIT 24.9 % (37.0-47.0); LYMPHOCYTES 0.8 %; MCH 29.6 pg (26.0-34.0); MCHC 33.5 g/dL (28.0-37.0); MCV 88.4 fL (80.0-100.0); MONOCYTES 1.5 %; MPV 9.1 fl. (7.2-11.1); NUCLEATED RBCS 0 /100WBC; PLATELET COUNT* 90 thou/uL (150-400); POLYS 97.4 %; RBC 2.82 mil/uL (4.20-5.00); RDW-CV 15.1 % (10.5-14.5)
[2021-01-04 16:05] LABS: HEMOGLOBIN 8.3 gm/dL (12.0-15.0)
[2021-01-04 16:14] LABS: CALCIUM 7.2 mg/dL (8.5-10.1); CREATININE 3.3 mg/dL (0.6-1.3)
[2021-01-05] VITALS (53 sets, daily range): BP systolic 79–146; BP diastolic 47–103
[2021-01-05 06:09] LABS: ABSOLUTE BASOPHILS 0.1 thou/uL (0.0-0.2); ABSOLUTE LYMPHOCYTES 0.3 thou/uL (0.8-5.3); ABSOLUTE MONOCYTES 0.7 thou/uL (0.0-1.2); BASOPHILS 0.4 %; HEMATOCRIT 29.3 % (37.0-47.0); LYMPHOCYTES 0.8 %; MCH 29.8 pg (26.0-34.0); MCHC 34.1 g/dL (28.0-37.0); MCV 87.6 fL (80.0-100.0); MPV 9.3 fl. (7.2-11.1); NUCLEATED RBCS 1 /100WBC; PLATELET COUNT* 117 thou/uL (150-400); POLYS 96.8 %; RBC 3.35 mil/uL (4.20-5.00); WBC 34.1 thou/uL (4.0-11.0)
[2021-01-05 06:20] LABS: ALBUMIN 2.4 g/dL (3.4-5.0); CALCIUM 7.2 mg/dL (8.5-10.1); CREATININE 3.3 mg/dL (0.6-1.3); MAGNESIUM 1.9 mg/dL (1.8-2.4); POTASSIUM 4.1 mmol/L (3.5-5.1); TOTAL BILIRUBIN 1.4 mg/dL (<0.1-1.0); TOTAL PROTEIN 4.6 g/dL (6.4-8.2)
[2021-01-05 13:04] LABS: APTT 30.6 Seconds (25.0-31.3); INR 1.1; PROTIME 11.6 Seconds (9.20-11.50)
[2021-01-06] VITALS (47 sets, daily range): BP systolic 95–145; BP diastolic 50–83
[2021-01-06 06:32] LABS: ABSOLUTE BASOPHILS 0.1 thou/uL (0.0-0.2); ABSOLUTE LYMPHOCYTES 0.4 thou/uL (0.8-5.3); ABSOLUTE MONOCYTES 0.7 thou/uL (0.0-1.2); ABSOLUTE NEUTROPHILS 36.3 thou/uL (1.6-8.1); BASOPHILS 0.2 %; HEMATOCRIT 27.8 % (37.0-47.0); HEMOGLOBIN 9.3 gm/dL (12.0-15.0); MCH 29.9 pg (26.0-34.0); MCHC 33.6 g/dL (28.0-37.0); MPV 9.4 fl. (7.2-11.1); NUCLEATED RBCS 1 /100WBC; PLATELET COUNT* 95 thou/uL (150-400); POLYS 96.8 %; RBC 3.13 mil/uL (4.20-5.00); RDW-CV 16.1 % (10.5-14.5); WBC 37.5 thou/uL (4.0-11.0)
--- NOTE | 2021-01-06 06:50 | NUR ---
ASSUMED PATIENT CARE AT 1900. ASSESSMENTS COMPLETED CHARTED. CARDIAC MONITORING IN PLACE. HOURLY ROUNDING IN PLACE FOR PATIENT SAFETY. FALL PRECAUTIONS IN PLACE FOR PATIENT SAFETY. BED LOCKED AND IN LOWEST POSITION. PATIENT HAD SMALL BM DURING SHIFT.
[2021-01-06 07:03] LABS: ALBUMIN 2.1 g/dL (3.4-5.0); CREATININE 3.7 mg/dL (0.6-1.3); PHOSPHORUS* 3.2 mg/dL (2.5-4.9); POTASSIUM 4.3 mmol/L (3.5-5.1); TOTAL BILIRUBIN 0.8 mg/dL (<0.1-1.0); TOTAL PROTEIN 4.3 g/dL (6.4-8.2)
[2021-01-06 08:01] LABS: PO2 98.8 mmHg (75.0-100.0); pH 7.412 (7.340-7.450)
[2021-01-07] VITALS (116 sets, daily range): BP systolic 80–141; BP diastolic 40–90
[2021-01-07 02:05] LABS: HEMOGLOBIN 9.6 g/dL (11.1-15.9)
[2021-01-07 07:21] LABS: ABSOLUTE BASOPHILS 0.3 thou/uL (0.0-0.2); ABSOLUTE LYMPHOCYTES 0.2 thou/uL (0.8-5.3); ABSOLUTE MONOCYTES 0.2 thou/uL (0.0-1.2); ABSOLUTE NEUTROPHILS 23.3 thou/uL (1.6-8.1); MCH 29.3 pg (26.0-34.0); MCHC 32.6 g/dL (28.0-37.0); MCV 89.9 fL (80.0-100.0); MPV 9.7 fl. (7.2-11.1); NUCLEATED RBCS 1 /100WBC; PLATELET COUNT* 56 thou/uL (150-400); RBC 2.13 mil/uL (4.20-5.00); RDW-CV 16.1 % (10.5-14.5)
[2021-01-07 07:34] LABS: ALBUMIN 2.9 g/dL (3.4-5.0); CREATININE 3.8 mg/dL (0.6-1.3); MAGNESIUM 2.2 mg/dL (1.8-2.4); PHOSPHORUS* 4.3 mg/dL (2.5-4.9); POTASSIUM 4.9 mmol/L (3.5-5.1); TOTAL BILIRUBIN 1.1 mg/dL (<0.1-1.0); TOTAL PROTEIN 4.5 g/dL (6.4-8.2)
[2021-01-07 07:39] LABS: HEMATOCRIT 19.2 % (37.0-47.0); HEMOGLOBIN 6.2 gm/dL (12.0-15.0)
[2021-01-07 17:09] LABS: HEMATOCRIT 28.1 % (37.0-47.0); HEMOGLOBIN 9.2 gm/dL (12.0-15.0)
[2021-01-08] VITALS (182 sets, daily range): BP systolic 73–158; BP diastolic 11–108
[2021-01-08 06:25] LABS: HEMATOCRIT 25.4 % (37.0-47.0); HEMOGLOBIN 8.4 gm/dL (12.0-15.0); MCHC 33.2 g/dL (28.0-37.0); MCV 87.5 fL (80.0-100.0); NUCLEATED RBCS 0 /100WBC; RDW-CV 16.2 % (10.5-14.5); WBC 24.9 thou/uL (4.0-11.0)
[2021-01-08 06:38] LABS: ALBUMIN 2.3 g/dL (3.4-5.0); CREATININE 3.3 mg/dL (0.6-1.3); POTASSIUM 4.7 mmol/L (3.5-5.1); TOTAL BILIRUBIN 0.9 mg/dL (<0.1-1.0); TOTAL PROTEIN 3.9 g/dL (6.4-8.2)
[2021-01-08 06:42] LABS: PLATELET COUNT* 40 thou/uL (150-400)
[2021-01-08 08:35] LABS: ABSOLUTE LYMPHOCYTES 0.2 thou/uL (0.8-5.3); ABSOLUTE NEUTROPHILS 24.7 thou/uL (1.6-8.1); METAMYELOCYTES 1 %; PLATELET ESTIMATE DECREASED
[2021-01-08 08:48] LABS: APTT 41.1 Seconds (25.0-31.3); INR 1.1; PROTIME 11.5 Seconds (9.20-11.50)
--- NOTE | 2021-01-08 10:33 | NUR ---
WOUND NURSE: RECEIVED CONSULT REGARDING BILAT HEEL CHANGES IN SKIN INTEGRITY. RIGHT HEEL WITH MINOR STAGE 1 PRESSURE INJURY. LEFT HEEL WITH SUSPECTED DEEP TISSUE INJURY. SKIN IS INTACT, BUT PRESENTS WITH MAROON NONBLANCHEABLE DISCOLORATION. PATIENT IS IN HEELMEDIX BOOTS BILATERALLY. RECOMMEND CONTINUE WITH OFFLOADING WITH HEELMEDIX BOOTS. NO OTHER INTERVENTION AT THIS TIME.
[2021-01-08 14:37] LABS: BE -6.2 mmol/L (-2 to +3); PCO2 VENOUS 44.6 mmHg (41.0-51.0); PO2 VENOUS 79.8 mmHg (35.0-45.0)
--- NOTE | 2021-01-08 18:32 | NUR ---
PT BEDSIDE RN, GAVINO, PROVIDED CM WITH PT'S SISTER, TIM PHONE NUMBER, AND ADRIEN [phone]. PER TIM, PT HAS NO CHILDREN AND LIVED AT [facility] (MANAGERS - [place] [phone] & [place] [phone].) PT HAS NO CHILDREN OR SPOUSE. TIM INDICATED SHE AND ADRIEN PLANNED TO SIGN DNR. ADRIEN WANTS TO VISIT PT. THEY WOULD LIKE TO PROCEED WITH COMFORT. CM NOTIFIED CM DIRECTOR, NEELAM, OF TIM'S DECISION.
[2021-01-09] VITALS (33 sets, daily range): BP systolic 78–187; BP diastolic 48–105
[2021-01-09 05:21] LABS: ABSOLUTE LYMPHOCYTES 0.2 thou/uL (0.8-5.3); ABSOLUTE MONOCYTES 0.2 thou/uL (0.0-1.2); ABSOLUTE NEUTROPHILS 13.8 thou/uL (1.6-8.1); BASOPHILS 0.1 %; LYMPHOCYTES 1.5 %; MCH 28.6 pg (26.0-34.0); MCHC 32.7 g/dL (28.0-37.0); MCV 87.6 fL (80.0-100.0); MONOCYTES 1.5 %; MPV 9.2 fl. (7.2-11.1); NUCLEATED RBCS 1 /100WBC; POLYS 96.9 %; RBC 1.93 mil/uL (4.20-5.00); RDW-CV 16.3 % (10.5-14.5); WBC 14.2 thou/uL (4.0-11.0)
[2021-01-09 05:39] LABS: ALBUMIN 2.8 g/dL (3.4-5.0); CALCIUM 7.5 mg/dL (8.5-10.1); MAGNESIUM 1.9 mg/dL (1.8-2.4); POTASSIUM 4.1 mmol/L (3.5-5.1); TOTAL BILIRUBIN 1.1 mg/dL (<0.1-1.0); TOTAL PROTEIN 3.9 g/dL (6.4-8.2)
[2021-01-09 05:41] LABS: CREATININE 2.1 mg/dL (0.6-1.3)
[2021-01-09 08:09] LABS: HEMATOCRIT 16.9 % (37.0-47.0); HEMOGLOBIN 5.5 gm/dL (12.0-15.0); PLATELET COUNT* 18 thou/uL (150-400)
[2021-01-09 09:12] LABS: ABSOLUTE LYMPHOCYTES 0.2 thou/uL (0.8-5.3); ABSOLUTE MONOCYTES 0.2 thou/uL (0.0-1.2); ABSOLUTE NEUTROPHILS 13.3 thou/uL (1.6-8.1); BASOPHILS 0.1 %; LYMPHOCYTES 1.5 %; MCH 29.2 pg (26.0-34.0); MCHC 33.1 g/dL (28.0-37.0); MCV 88.3 fL (80.0-100.0); MONOCYTES 1.6 %; MPV 8.9 fl. (7.2-11.1); NUCLEATED RBCS 1 /100WBC; POLYS 96.8 %; RBC 1.95 mil/uL (4.20-5.00); RDW-CV 16.1 % (10.5-14.5); WBC 13.7 thou/uL (4.0-11.0)
[2021-01-09 09:16] LABS: HEMATOCRIT 17.2 % (37.0-47.0); HEMOGLOBIN 5.7 gm/dL (12.0-15.0)
[2021-01-09 09:17] LABS: PLATELET COUNT* 18 thou/uL (150-400)
[2021-01-09 09:26] LABS: CALCIUM 7.2 mg/dL (8.5-10.1); CREATININE 1.9 mg/dL (0.6-1.3)
[2021-01-09 13:18] LABS: BE -7.6 mmol/L (-2 to +3); PCO2 VENOUS 42.1 mmHg (41.0-51.0); PO2 VENOUS 40.4 mmHg (35.0-45.0)
--- NOTE | 2021-01-09 15:19 | NUR ---
PLAN OF CARE: PHYSICIAN INFORMS CM ABOUT PT'S SISTERS REQUEST TO BE INVOLVED IN PT'S POC. HOWEVER CM ATTEMPTED TO CONTACT PTS LISTED DPOA. NO ANSWER. CM ALSO CONTACTED PT LISTED AUTHORIZED CONTACT KATHY GRIDER. KATHY INFORMS THAT HE 'USED TO BE PT COORDINATOR AT [facility]', BUT IS NOT ANYMORE. KATHY INFORMS THAT HE SPOKE TO A NURSE FROM HERE IN THE HOSPITAL AND INFORMED THEM OF THE PT'S SISTERS CONTACT INFO, BUT ALSO INFORMED THAT THE PT HAD NOT SPOKEN TO THEM IN QUITE SOME TIME AND DID NOT WANT THEM TO BE INVOLVED IN HER POC. HE ALSO INFORMED THAT THE PT'S PREVIOUS DPOA HAD RECENTLY PASSED. CM INFORMED CM ACADEMIC ADVISING DIRECTOR AND PHYSICIAN OF THIS INFO, AND OF THE POSSIBLITY OF NEEDING AN ETHIC COMMITTEE MEETING TO DISCUSS THIS. CM WILL REMAIN AVAILABLE TO ASSIST AND FOLLOW NEEDED.
--- NOTE | 2021-01-09 19:18 | NUR ---
ASSUMED CARE AT 0700. ALL INTERVENTIONS COMPLETED CHARTED. PT WAS ON CRRT STARTING MY SHIFT, AND WAS STOPPED TO TO PT BECOMING UNSTABLE. NEPHROLOGY AWARE AND OK WITH THAT. PT RUNNING PVCS AND AFIB BECAME MORE CONSISTANT IN AFTERNOON AND HR DECREASED. 3 DOSES OF ATROPINE GIVEN. DOPAMINE STARTED AND TITRATED TO MAX AT 19.9 MCG/KG/MIN, AND LEVO TITRATED TO 29.7 MCG/MIN. VERY DIFFICULT TO OBTAIN BP. RADIAL ART LINE WAS ATTEMPTED TO BE PLACED BUT WAS UNSUCCESSFUL. POSS BLOOD CLOT UPPER RIGHT EXTREMITY. 1600 HIGH RESIDUAL AT 200. FECAL TUBE IN PLACE. 0 URINE OUTPUT. 1 UNIT PACKED RBC AND ONE UNIT PLASMA GIVEN. PT CURENTLY AT HR OF 87. SISTER (CHRISTINA) AND NIECE AT BEDSIDE MOST OF DAY.
--- NOTE | 2021-01-09 20:20 | NUR ---
FAMILY MEETING HELD WITH SISTER, MELANIE, AND DR. HALE PRESENT. DECISION MADE TO WITHDRAW CARE AND MAKE THE PATIENT COMFORTABLE. PATIENT EXTUBATED BY RT AND VASOPRESSOR SUPPORT WITHDRAWN. FAMILY AT BEDSIDE WITH THE PATIENT
--- NOTE | 2021-01-09 20:38 | NUR ---
TIME OF AT 2035 ON 01/09/2021. PRONOUNCED BY DR. HALE
== END 2021-01-09 20:36 | DRG 870 ==
LOC: M.ERS 11:09 → M.ICU 12:55 → M.2W 12:55 → M.TBA-ER 12:55 → M.2W 12-19 13:00 → M.ICU 12-25 01:16 → M.ORTHSURG 12-26 23:09 → M.2W 12-28 07:08 → M.ICU 01-03 13:40
PROVIDERS: Family Medicine; Internal Medicine; Internal Medicine Cardiovascular Disease; Internal Medicine Critical Care Medicine; Internal Medicine Nephrology; Nurse Practitioner Family; Pediatrics; ADMIT Internal Medicine; ATTEND Internal Medicine
PROC: 5A09357 Assistance with Respiratory Ventilation, Less than 24 Consecutive Hours, Continuous Positive Airway Pressure (ICD-10-PCS; principal; 2020-12-21)
PROC: 5A0935A Assistance with Respiratory Ventilation, Less than 24 Consecutive Hours, High Flow/Velocity Cannula (ICD-10-PCS; 2020-12-22)
PROC: 5A09357 Assistance with Respiratory Ventilation, Less than 24 Consecutive Hours, Continuous Positive Airway Pressure (ICD-10-PCS; 2020-12-22)
PROC: 5A0935A Assistance with Respiratory Ventilation, Less than 24 Consecutive Hours, High Flow/Velocity Cannula (ICD-10-PCS; 2020-12-23)
PROC: 5A09357 Assistance with Respiratory Ventilation, Less than 24 Consecutive Hours, Continuous Positive Airway Pressure (ICD-10-PCS; 2020-12-23)
PROC: 5A09357 Assistance with Respiratory Ventilation, Less than 24 Consecutive Hours, Continuous Positive Airway Pressure (ICD-10-PCS; 2020-12-24)
PROC: 5A0935A Assistance with Respiratory Ventilation, Less than 24 Consecutive Hours, High Flow/Velocity Cannula (ICD-10-PCS; 2020-12-24)
PROC: 5A09357 Assistance with Respiratory Ventilation, Less than 24 Consecutive Hours, Continuous Positive Airway Pressure (ICD-10-PCS; 2020-12-25)
PROC: 5A0935A Assistance with Respiratory Ventilation, Less than 24 Consecutive Hours, High Flow/Velocity Cannula (ICD-10-PCS; 2020-12-25)
PROC: 5A09357 Assistance with Respiratory Ventilation, Less than 24 Consecutive Hours, Continuous Positive Airway Pressure (ICD-10-PCS; 2020-12-26)
PROC: 5A0935A Assistance with Respiratory Ventilation, Less than 24 Consecutive Hours, High Flow/Velocity Cannula (ICD-10-PCS; 2020-12-26)
PROC: 5A0935A Assistance with Respiratory Ventilation, Less than 24 Consecutive Hours, High Flow/Velocity Cannula (ICD-10-PCS; 2020-12-27)
PROC: 5A09357 Assistance with Respiratory Ventilation, Less than 24 Consecutive Hours, Continuous Positive Airway Pressure (ICD-10-PCS; 2020-12-27)
PROC: 5A0935A Assistance with Respiratory Ventilation, Less than 24 Consecutive Hours, High Flow/Velocity Cannula (ICD-10-PCS; 2020-12-28)
PROC: 5A09357 Assistance with Respiratory Ventilation, Less than 24 Consecutive Hours, Continuous Positive Airway Pressure (ICD-10-PCS; 2020-12-28)
PROC: 5A09357 Assistance with Respiratory Ventilation, Less than 24 Consecutive Hours, Continuous Positive Airway Pressure (ICD-10-PCS; 2020-12-29)
PROC: 5A09357 Assistance with Respiratory Ventilation, Less than 24 Consecutive Hours, Continuous Positive Airway Pressure (ICD-10-PCS; 2020-12-30)
PROC: 5A09357 Assistance with Respiratory Ventilation, Less than 24 Consecutive Hours, Continuous Positive Airway Pressure (ICD-10-PCS; 2020-12-31)
PROC: 30233N1 Transfusion of Nonautologous Red Blood Cells into Peripheral Vein, Percutaneous Approach (ICD-10-PCS; 2021-01-01)
PROC: 5A09357 Assistance with Respiratory Ventilation, Less than 24 Consecutive Hours, Continuous Positive Airway Pressure (ICD-10-PCS; 2021-01-02)
PROC: 0BH17EZ Insertion of Endotracheal Airway into Trachea, Via Natural or Artificial Opening (ICD-10-PCS; 2021-01-03)
PROC: 5A09357 Assistance with Respiratory Ventilation, Less than 24 Consecutive Hours, Continuous Positive Airway Pressure (ICD-10-PCS; 2021-01-03)
PROC: 02HV33Z Insertion of Infusion Device into Superior Vena Cava, Percutaneous Approach (ICD-10-PCS; 2021-01-03)
PROC: 5A1955Z Respiratory Ventilation, Greater than 96 Consecutive Hours (ICD-10-PCS; 2021-01-03)
PROC: B548ZZA Ultrasonography of Superior Vena Cava, Guidance (ICD-10-PCS; 2021-01-03)
PROC: 02HV33Z Insertion of Infusion Device into Superior Vena Cava, Percutaneous Approach (ICD-10-PCS; 2021-01-08)
PROC: B548ZZA Ultrasonography of Superior Vena Cava, Guidance (ICD-10-PCS; 2021-01-08)
PROC: 30233R1 Transfusion of Nonautologous Platelets into Peripheral Vein, Percutaneous Approach (ICD-10-PCS; 2021-01-09)
DX: A41.89 Other specified sepsis (principal); J15.6 Pneumonia due to other Gram-negative bacteria; N17.0 Acute kidney failure with tubular necrosis; J96.21 Acute and chronic respiratory failure with hypoxia; J96.22 Acute and chronic respiratory failure with hypercapnia; I21.A1 Myocardial infarction type 2; G92 Toxic encephalopathy; R65.21 Severe sepsis with septic shock; I61.8 Other nontraumatic intracerebral hemorrhage; M62.82 Rhabdomyolysis; E87.0 Hyperosmolality and hypernatremia; J44.1 Chronic obstructive pulmonary disease with (acute) exacerbation; I48.92 Unspecified atrial flutter; N39.0 Urinary tract infection, site not specified; A04.72 Enterocolitis due to Clostridium difficile, not specified as recurrent; Z20.822 Contact with and (suspected) exposure to COVID-19; I25.10 Atherosclerotic heart disease of native coronary artery without angina pectoris; E78.5 Hyperlipidemia, unspecified; E86.0 Dehydration; I95.9 Hypotension, unspecified; I73.9 Peripheral vascular disease, unspecified; I12.9 Hypertensive chronic kidney disease with stage 1 through stage 4 chronic kidney disease, or unspecified chronic kidney disease; N18.9 Chronic kidney disease, unspecified; B96.20 Unspecified Escherichia coli [E. coli] as the cause of diseases classified elsewhere; B37.9 Candidiasis, unspecified; D69.6 Thrombocytopenia, unspecified; Z66 Do not resuscitate; Z90.710 Acquired absence of both cervix and uterus; Z85.118 Personal history of other malignant neoplasm of bronchus and lung; Z92.21 Personal history of antineoplastic chemotherapy; Z88.0 Allergy status to penicillin; Z87.891 Personal history of nicotine dependence